=== PATIENT | male | born 1975 | race Caucasian/White ===

== ENCOUNTER 2023-11-06 09:56 | Outpatient (REF) | payer BC, SELFPAY ==
--- NOTE | ~2023-11-06 | XR_ITS ---
EXAMINATION: XR LUMBOSACRAL SPINE WITH OBLIQUES CLINICAL INFORMATION: Lumbar degenerative disc disease. COMPARISON: None. TECHNIQUE: AP and lateral (neutral, flexion and extension) views of the lumbosacral spine are submitted. FINDINGS: Vertebral body heights are normal. There is a mild lumbar rotatory dextroscoliosis. There is mild posterior disc space narrowing at L3-L4. There is marked disc space narrowing at L4-L5. There is mild disc space narrowing at L5-S1. No acute fracture or spondylolisthesis is seen. There is no instability with flexion or extension. There is multi-level lumbar endplate Schmorl's node formation. The posterior elements are intact. There is facet arthropathy at L5-S1. The paravertebral soft tissues are unremarkable. XR/XR lumbar spine 4V min IMPRESSION: 1. There is marked degenerative disc disease at L4-L5, and mild degenerative disc disease is seen at L3-L4 and L5-S1. 2. No acute fracture or spondylolisthesis is seen. There is no instability with flexion or extension 3. There is multi-level endplate Schmorl's node formation. 4. There is facet arthropathy at L5-S1. 5. There is a mild lumbar rotatory dextroscoliosis.
== END 2023-11-06 09:57 | disposition home or self-care (01) ==
LOC: HO.HOSX 09:56
PROVIDERS: Visit Provider Neurological Surgery
DX: M51.36 Other intervertebral disc degeneration, lumbar region (principal); M41.56 Other secondary scoliosis, lumbar region
CPT/HCPCS: 72110

== ENCOUNTER 2024-06-23 06:09 | Inpatient (IN) | payer BC, SELFPAY ==
--- NOTE | 2024-06-09 | ECG_ITS ---
Test Reason : preop Blood Pressure : / mmHG Vent. Rate : 059 BPM Atrial Rate : 059 BPM P-R Int : 148 ms QRS Dur : 104 ms QT Int : 418 ms P-R-T Axes : 041 044 035 degrees QTc Int : 413 ms Sinus bradycardia Otherwise normal ECG No previous ECGs available Referred By: Fouzia Son Electronically Signed By:MARCY ANDERSON
[2024-06-09 12:23] VITALS: BP 125/79; PULSE 67; RESP 20; O2SAT 98; BMI 27.0
[2024-06-09 13:31] LABS: Hematocrit 43.1 % (42.0-52.0); Hemoglobin 14.6 g/dl (14.0-18.0); Mean Corpuscular HGB Conc 33.9 g/dl (31.0-36.0); Mean Corpuscular Hemoglobin 31.9 pg (27.0-33.0); Mean Corpuscular Volume 94.3 fL (80.0-98.0); Mean Platelet Volume 10.4 fL (9.4-12.4); Platelet Count 200 X10*3/uL (160-400); Red Blood Count 4.57 X10*6/uL (4.60-5.80); Red Cell Distribution Width 12.4 % (11.0-16.0)
[2024-06-09 14:39] LABS: Anion Gap 10 (12-20); Blood Urea Nitrogen 16 mg/dL (9-16); Calcium 9.5 mg/dL (8.4-10.2); Carbon Dioxide 27 mmol/L (22-29); Chloride 107 mmol/L (96-108); Creatinine Clr Calc Pharmacy 95.9; Estimated Glomerular Filt Rate > 60; Glucose Random 99 mg/dL (60-115); Potassium 4.1 mmol/L (3.3-5.1); Sodium 140 mmol/L (135-145)
[2024-06-23] VITALS (17 sets, daily range): BP systolic 113–140; BP diastolic 40–92; PULSE 79–97; RESP 16–20; TEMP 36.2–37; O2SAT 98–100; BMI 27.0; BMI 26.9
--- NOTE | ~2024-06-23 | FL_ITS ---
EXAMINATION: FLUOROSCOPY GUIDANCE FOR NEEDLE PLACEMENT CLINICAL INFORMATION: Fluoroscopy in the operating room COMPARISON: None available. TECHNIQUE: Fluoroscopy of the lumbar spine FINDINGS: 2 images demonstrate L3-L5 posterior fusion FLUOROSCOPY TIME: 2 minutes and 33 seconds DOSE AREA PRODUCT: 34.035 Gy-cm2 (angelo-centimeter squared) FL/FL guidance in OR IMPRESSION: Fluoroscopy in the operating room. Please see operative report for additional information. Electronically signed by: Jyotsna Red MD 06/26/2024 04:30 PM EDT
--- NOTE | ~2024-06-23 | CT_ITS ---
EXAMINATION: CT LUMBAR SPINE WITHOUT CONTRAST CLINICAL INFORMATION: Right leg weakness. COMPARISON: Intraoperative fluoroscopic images of earlier same date TECHNIQUE: Thin section axial images with sagittal and coronal reformats. This CT examination was performed using dose optimization techniques as appropriate, variously including the following: *Automated exposure control *Adjustment of mA and/or kV according to patient size (this includes techniques or standardized protocols for targeted exams where dose is matched to indication/reason for exam; i.e. extremities or head) *Use of iterative reconstruction technique DLP; 1305 mGy-cm FINDINGS: There is surgical hardware noted L3-4 and L4-5. The posterior hardware and transpedicular screws are intact and demonstrate normal positioning with extensive streak artifact noted. The intervertebral disc spacers L3-4 and L4-5 are in good position. I do not see evidence of a fracture or destructive process. There is no significant encroachment on the spinal canal. The L5-S1 level is unremarkable. Only mild annular disc protrusion there is observed with mild bilateral foraminal encroachment. At L1-2 and L2-3, there is slight chronic-appearing endplate irregularity with disc space narrowing and mild annular disc protrusions at these levels. At these levels no evidence for spinal stenosis. CT/CT lumbar spine wo IV con IMPRESSION: Surgical hardware intact. No significant encroachment on the spinal canal. Alignment is preserved. Electronically signed by: Hakan Garcia MD 06/23/2024 04:32 PM EDT
[2024-06-23] MEDS: methocarbamoL 750 MG TABLET PO ×3 (06:36→19:13)
[2024-06-23] MEDS: Gabapentin 300 MG CAPSULE PO (06:36)
[2024-06-23] MEDS: Lactated Ringers 1,000 ML 100 ML IVCONT (06:48)
--- NOTE | 2024-06-23 07:00 | HO.ANESPROP2 ---
Documented by User: Fouzia Son NP 06/10/24 13:33 HPI - Anesthesia Eval Consult details Narrative: 48yo M for L3-4,L4-5 Oblique Lumbar Interbody Fusion, 06/23/24 Declines preop versed No recent illness No CP/SOB with walking ~ 2 miles daily Hx opiate abuse: None for years. GERD: ppi controls Afib: 2 x 2011 d/t vagal nerve stim, cardioverted x 2, no recurrence. PMFSH Active Problems Active Problems: All Active Problems Scoliosis of lumbar region due to degenerative disease of spine in adult (Acute) Lumbar degenerative disc disease (Acute) Past Medical History Medical History (Updated 06/09/24 @ 12:16 by Ary Love RN) Sleep disorder Opiate dependence History of cardioversion Afib Arthritis GERD (gastroesophageal reflux disease) Fracture Back pain Lumbar degenerative disc disease Family History Family history of problems with anesthesia: No Surgical History Surgical History History of esophagogastroduodenoscopy (EGD) H/O colonoscopy Hx of nasal septoplasty History of Problems with Anesthesia: No Social History Social History Are you a primary acute care nurse practitioner to a significant other at home: No Do you presently have visiting nurse or other home services: No Patient Tobacco Use Status: Former Tobacco user Tobacco use type: Cigarette Years Smoked: 20 Use of substances other than those prescribed or required for medical reasons: Yes Substance Use Type Other:: smokes marijuana-advised to hold 3-5 days pre-op Substance Use Frequency: Weekly Have you been hit, kicked, punched, or otherwise hurt by someone within the past year? If so, by whom?: No Are you DNR?: No Advance Directives Information Provided: Yes (as above noted) Advance Directives on File: No Recently lost weight without trying: No Eating poorly because of decreased appetite: No Nutrition Risks: No Nutritional Risk Poor oral hygiene: No Meds Allergies Allergy/AdvReac Type Severity Reaction Status Date / Time avocado Allergy Intermediate lip Verified 06/23/24 06:24 swelling prednisone AdvReac Severe panic Verified 06/23/24 06:24 attacks/severe anxiety Home Medications ?Medication ?Instructions ?Recorded ?Confirmed ?Last Taken ?Type omeprazole 40 mg capsule,delayed 40 mg PO QAM 11/06/23 06/23/24 06/23/24 History release magnesium oxide 400 mg PO DAILY 06/09/24 06/23/24 06/22/24 History Exam Height,Weight and Vital Signs: Height 6 ft 3 in Weight 97.976 kg Last Vital Signs Pulse 67 06/09/24 12:23 Resp 20 06/09/24 12:23 BP 125/79 06/09/24 12:23 Pulse Ox 98 06/09/24 12:23 O2 Del Method Room Air 06/09/24 12:23 Pertinent Lab Results Pertinent Lab Results: Lab Results 06/09/24 06/09/24 Range/Units 13:11 13:21 WBC 6.0 (4.8-10.8) X10*3/uL RBC 4.57 L (4.60-5.80) X10*6/uL Hgb 14.6 (14.0-18.0) g/dl Hct 43.1 (42.0-52.0) % MCV 94.3 (80.0-98.0) fL MCH 31.9 (27.0-33.0) pg MCHC 33.9 (31.0-36.0) g/dl RDW 12.4 (11.0-16.0) % Plt Count 200 (160-400) X10*3/uL MPV 10.4 (9.4-12.4) fL Absolute Nucleated RBC 0.000 (0.0-0.012) X10*3/uL Nucleated RBC % (auto) 0.0 (0.0-0.2) /100WBC Sodium 140 (135-145) mmol/L Potassium 4.1 (3.3-5.1) mmol/L Chloride 107 (96-108) mmol/L Carbon Dioxide 27 (22-29) mmol/L Anion Gap 10 L (12-20) BUN 16 (9-16) mg/dL Creatinine 1.15 (0.5-1.4) mg/dL Estim Creat Clear Calc 95.9 Estimated GFR > 60 Random Glucose 99 (60-115) mg/dL Calcium 9.5 (8.4-10.2) mg/dL Blood Type A Negative Antibody Screen NEGATIVE Narrative Narrative: EKG 05/2024 Vent. Rate : 059 BPM Atrial Rate : 059 BPM P-R Int : 148 ms QRS Dur : 104 ms QT Int : 418 ms P-R-T Axes : 041 044 035 degrees QTc Int : 413 ms Sinus bradycardia Otherwise normal ECG No previous ECGs available Airway Mallampati Class: I TM Dist: >3cm Neck ROM: Full Loose/Missing/Broken Teeth: Yes (molars extracted) Heart: RRR Lungs: CTAB Assessment and Plan Assessment Anesthesia Assessment: Anesthesia Plan Discussed and PAT Visit Final Anesthetic Review Family History of Problems with Anesthesia: No History of Problems with Anesthesia: No Documented by User: Britta Boateng, 06/23/24 07:07 [facility] Past Medical History Medical History (Updated 06/09/24 @ 12:16 by Ary Love RN) Sleep disorder Opiate dependence History of cardioversion Afib Arthritis GERD (gastroesophageal reflux disease) Fracture Back pain Lumbar degenerative disc disease Family History Family history of problems with anesthesia: No Surgical History Surgical History History of esophagogastroduodenoscopy (EGD) H/O colonoscopy Hx of nasal septoplasty History of Problems with Anesthesia: No Social History Social History Are you a primary acute care nurse practitioner to a significant other at home: No Do you presently have visiting nurse or other home services: No Patient Tobacco Use Status: Former Tobacco user Tobacco use type: Cigarette Years Smoked: 20 Use of substances other than those prescribed or required for medical reasons: Yes Substance Use Type Other:: smokes marijuana-advised to hold 3-5 days pre-op Substance Use Frequency: Weekly Have you been hit, kicked, punched, or otherwise hurt by someone within the past year? If so, by whom?: No Are you DNR?: No Advance Directives Information Provided: Yes (as above noted) Advance Directives on File: No Recently lost weight without trying: No Eating poorly because of decreased appetite: No Nutrition Risks: No Nutritional Risk Poor oral hygiene: No Meds Allergies Allergy/AdvReac Type Severity Reaction Status Date / Time avocado Allergy Intermediate lip Verified 06/23/24 06:24 swelling prednisone AdvReac Severe panic Verified 06/23/24 06:24 attacks/severe anxiety Home Medications ?Medication ?Instructions ?Recorded ?Confirmed ?Last Taken ?Type omeprazole 40 mg capsule,delayed 40 mg PO QAM 11/06/23 06/23/24 06/23/24 History release magnesium oxide 400 mg PO DAILY 06/09/24 06/23/24 06/22/24 History Exam Exam Date and Time: 06/23/24 0700 Height,Weight and Vital Signs: Height 6 ft 3 in Weight 97.976 kg Last Vital Signs Pulse 67 06/09/24 12:23 Resp 20 06/09/24 12:23 BP 125/79 06/09/24 12:23 Pulse Ox 98 06/09/24 12:23 O2 Del Method Room Air 06/09/24 12:23 Vital Signs Pulse Rate 67 06/09/24 12:23 Respiratory Rate 20 06/09/24 12:23 Blood Pressure 125/79 06/09/24 12:23 Pulse Oximetry 98 06/09/24 12:23 Oxygen Delivery Method Room Air 06/09/24 12:23 Temperature 97.1 F 06/23/24 06:28 Pulse Rate 79 06/23/24 06:28 Respiratory Rate 16 06/23/24 06:28 Blood Pressure 119/83 06/23/24 06:28 Pulse Oximetry 100 06/23/24 06:28 Oxygen Delivery Method Room Air 06/23/24 06:28 Airway Mallampati Class: I TM Dist: >3cm Neck ROM: Full Loose/Missing/Broken Teeth: Yes (molars extracted) Heart: S1S2 Assessment and Plan Assessment Anesthesia Assessment: Anesthesia Plan Discussed and Chart Reviewed Final Anesthetic Review Family History of Problems with Anesthesia: No History of Problems with Anesthesia: No NPO: Yes ASA Class: II Final Preanesthetic Review: No Changes in Pt Med Stat, Meds/Allgs Chart Reviewed, Consent Obtained/Reviewed and Anes Risks/Benef Reviewed Patient Risk: Low Procedure Risk: Intermediate Anesthetic Plan Anesthetic Plan: GA and Agree w/ Assess. and Plan Disposition: Standard PACU
--- NOTE | 2024-06-23 07:22 | MHC.SHP ---
Pre-Procedural Eval Section A - 24 Hr Update-Section A only Date of Service: 06/23/24 The patient is an INPATIENT: No Changes since office visit: No Cold of Flu in the past 2 weeks, No New Medical Problems, No Changes in Medication and No Patient answered all questions The patient has been examined within 24 hours of the surgical procedure. The History & Physical has been completed within 30 days and I have reviewed it.: No Section B - Complete if H&P > 30 days Chief Complaint: s/p L3-5 OLIF Allergies: Allergies Allergy/AdvReac Type Severity Reaction Status Date / Time avocado Allergy Intermediate lip Verified 06/23/24 06:24 swelling prednisone AdvReac Severe panic Verified 06/23/24 06:24 attacks/severe anxiety Review of Systems Sugical H&P ROS: Negative: Constitution, Cardiovascular, Respiratory, Neurological, Psychiatric, Hem-Onc, Allergic/Immunologic, Gastrointestinal, Genitourinary, Musculoskeletal, Integumentary, Endocrine and Eyes/Ears/Nose/Throat Exam Surgical H&P Exam: Normal: HEENT, Normal: Heart, Normal: Lungs, Normal: Extremities, Normal: Abdomen, Normal: Skin and Normal: Neurological (awake, alert,oriented x 3 ) Plan Diagnosis/Plan: Unchanged L3-5 oblique lumbar interbody fusion Time Spent With Patient Time: Total time managing care of this patient today __5__ minutes.
--- NOTE | 2024-06-23 09:38 | PHA.MEDREC ---
Addendum entered by Angelica Sánchez RPh 06/23/24 09:40: eben reviewed Original Note: Pharmacy Consult ? Medication Reconciliation Pharmacy has reviewed the medication reconciliation done by nurse.
--- NOTE | 2024-06-23 10:34 | P.OP_ITS ---
Operative Note Operative Note Date of Service: 06/23/24 Narrative: Preop Diagnosis: 1.) Lumbar degenerative disc disease L3-4, L4-5, dextroscoliosis 2.) Back pain Procedure: 1) L3-4, L4-5 discectomy, arthrodesis and implantation cage through an anterolateral, retroperitoneal approach 2) L3-L5 posterior instrumented fusion 3) allograft 4) Injection of 10 cc of Exparel at the bilateral L4 transverse process for a muscular erector spinae block and additional Exparel in paravertebral tissue for postop management Consent Informed Consent was obtained for this operation. I have explained the nature, purpose and benefits of the operation. I have discussed the risks and benefit of the operation including possible complications or adverse events with patient/family. Alternative(s) were discussed with the patient with their relative benefits and risks as well as the consequences of not accepting the operation were included in obtaining consent. Surgeon: FRANCIS MEJIA MD, PHD Procedure Assisted By: carolyne Fitzgerald Description of Procedure This 48-year-old male presented with severe progressive chronic back pain. Imaging shows advanced lumbar degenerative disc disease L3-4 and L4-5 and dextroscoliosis. The patient was offered an oblique lumbar interbody fusion L3- 4 and L4-5. The procedure complications were explained. The patient was consented. The patient was brought to the operating room and endotracheally intubated. The patient was turned in a lateral position with the left side up. Prep and drape was done followed by timeout. A small incision was made in the left lower abdominal quadrant. The muscle fascia was opened after which the 3 muscle layer was split to enter the retroperitoneal space. Dilators were docked in the anterior one third of the L4-5 disc space followed by a retractor. The retractor was opened. A small arterial bleed occurred which was coagulated with the bipolar. I repositioned the retractor this time I clearly saw psoas muscle which I opened to expose the L4-5 disc space. An annulotomy was done after which an elevator Mathew was used to release the disc material from its endplates and to perforate the contralateral side. A partial discectomy was done. An 8 mm and 10 mm height trial implant was inserted. The discectomy was completed. The endplates were prepared. An 10 mm x 55 mm with 6 degree lordosis 4 web cage filled with allograft was inserted into the disc space under fluoroscopic guidance. This resulted in sizable increase of the disc space and foramina. The retractor was repositioned at the L3-4 level. An annulotomy was done and with an elevator Mathew the disc material was released from its endplate. A 10 mm trial was inserted. The diskectomy was completed with removal of a very large disc fragment. The endplates were prepared. Again a 10 mm x 55 mm with 6 degree lordosis 4 web cage filled with allograft was inserted into the disc space. Final x-rays showed good position of the interbody devices. Hemostasis was done. The retractor was removed.The incision was closed in 2 layers. Steri-Strips were used to approximate incision. An OpSite with Tegaderm was used to cover the incision. This marked first part of the procedure. The patient was turned prone on the [facility] spine table. 2C arms were installed for fluoroscopy. Prep and drape was done followed by a second timeout. 6 paramedian incisions were made lateral from the L3-L5 pedicles. The muscle fascia was opened after which the muscle layer was split bluntly to expose the posterolateral gutter. The following steps were taken. A pediguard tap was used to create a transpedicular trajectory into the vertebral body. A K wire was placed. A specially designed instrument was advanced over the K wire to decorticate the posterolateral gutter in preparation for the posterolateral fusion. A pedicle screw was advanced over the K wire and the K wire was removed. The steps were done for the bilateral L3-L5 pedicles. A total of 6 screws were placed with a diameter of 6.5 x 50 mm. Pedicle screws were connected with 85 mm zabrina bilaterally and locked down with locking caps. The extension towers were removed. The posterolateral gutter was filled with allograft to complete the posterolateral L3-L5 fusion Hemostasis was done and the incision was closed in 2 layers. Steri-Strips were used to approximate the incision. An OpSite were taken and was used to cover the incision. All sponge and needle counts were correct. Patient was extubated and transferred in stable is to recovery room. Anesthesia: General Estimated Blood Loss (ml): 100 mlk Duration of Surgery: 2 hours and 45 minutes Complications: None Postoperative Plan: Admit to inpatient for observation
[2024-06-23] MEDS: HYDROmorphone HCl 0.5 MG/0.5 ML SYRINGE IVPUSH ×3 (11:37→11:49)
[2024-06-23] MEDS: ceFAZolin Sodium/Dextrose,Iso 2 GM/50 ML PIGGYBACK IV ×2 (13:36→19:08)
--- NOTE | 2024-06-23 14:35 | HO.NEUROPN_ITS ---
Neurosurgery Operative Note Date of Service: 06/23/24 Narrative: Postop check L3-4, L4-5 oblique lumbar interbody fusion Patient reports numbness in his right leg in his thigh going down into his calf and foot. Also reports feelings of weakness in his quadriceps. Feeling like he can not lift his leg off the bed. He has back spasms also. No symptoms going down the left leg. Dr. Owens and I evaluated him, on examination he is demonstrating some limitation with his right quadriceps, some limitation with hip flexion as well in the iliopsoas, unclear if this is due to pain or neurological. Distal lower extremity on the right leg tibialis and gastrocnemius full strength. Left lower extremity strength is full with the exception of some mild hip flexion weakness related to pain. He has decreased sensation along what seems to be the L 3/4 dermatome and some into the L5 as w ell on the right leg. We sent the patient for a stat CT scan, CT confirms all the hardware is in good position, pedicle screws do not show any misplacement near the nerves. Impression: Postop check L3-5 oblique lumbar interbody fusion, patient woke with numbness of his right leg going in multiple distributions, feelings of weakness of his right quadriceps. We did a CT scan and it seems that all the hardware is in good positioning so this could just be due to irritation of the nerves after surgery, possibly some of the Exparel nerve block in the area causing some loss of sensation. I examined him after our initial examination he seemed to be a little bit stronger in terms of his quadriceps strength. I would currently rated as 3/5 while supporting the knee. I reviewed all this with Dr. Owens, we will just continue to monitor the situation expect it to resolve with time. He can be out of bed as tolerated, regular diet. He can work with PT home either tomorrow or the day after.
[2024-06-23] MEDS: Acetaminophen 1,000 MG/100 ML PIGGYBACK 400 MG IV ×2 (15:05→19:08)
[2024-06-23] MEDS: oxyCODONE HCl Immed Release 5 MG TABLET PO (15:10)
[2024-06-23] MEDS: oxyCODONE HCl Immed Release 5 MG TABLET 10 MG PO (19:07)
[2024-06-23] MEDS: Ketorolac Tromethamine 15 MG/ML VIAL IVPUSH (20:27)
[2024-06-23] MEDS: HYDROmorphone HCl 1 MG/ML SYRINGE IVPUSH (20:28)
[2024-06-24] MEDS: ceFAZolin Sodium/Dextrose,Iso 2 GM/50 ML PIGGYBACK IV (01:00)
[2024-06-24] MEDS: methocarbamoL 750 MG TABLET PO (02:25)
[2024-06-24] MEDS: oxyCODONE HCl Immed Release 5 MG TABLET PO ×3 (02:29→14:39)
[2024-06-24] MEDS: Acetaminophen 1,000 MG/100 ML PIGGYBACK 400 MG IV (02:30)
[2024-06-24 02:34] VITALS: BP 138/81; PULSE 83; RESP 20; TEMP 36.7; O2SAT 100
[2024-06-24] MEDS: Ketorolac Tromethamine 15 MG/ML VIAL IVPUSH ×3 (03:39→14:40)
[2024-06-24] MEDS: Cyclobenzaprine HCl 10 MG TABLET PO (03:49)
--- NOTE | 2024-06-24 03:56 | PC.NURSE ---
Patient complains of muscle spasms, prn Robaxin given with no effect and patient currently refusing any other pain meds at this time stating he needs a different muscle relaxer. notified and noam ordered and given with pending effect
[2024-06-24] MEDS: Omeprazole 40 MG CAPSULE.DR PO (06:15)
--- NOTE | 2024-06-24 07:29 | HO.NEUROPN_ITS ---
Neurosurgery Operative Note Date of Service: 06/24/24 Narrative: POD: 1 Procedure: L3-5 SHAUN Huston was seen sitting in bed this morning on [address] [place] [address]. He reports that overnight he had quite a bit of pain in his low back. He did not want to take the narcotic pain medication that was prescribed. Instead he requested muscle relaxers. He did report good relief of his pain when he was able to get the requested muscle relaxers. He has been up out of bed to the bathroom. He is tolerating his current diet. Thankfully he feels his lower extremity strength has significantly improved since postop. Afebrile, vital signs stable. Patient is conversational, in some obvious pain but NAD. Full strength 5/5 LEs. Back dressings have some staining without signs of hematoma. No active sanguineous drainage. Area is dry. Plan: Will be remain admitted to [address] [place] [address] for recovery, pain management, and further evaluation. I will be adding on a course of baclofen and gabapentin to his medication regimen, in an effort to better control his pain without narcotic pain medication, as he has expressed his unwillingness to take narcotic pain medications unless absolutely necessary. Unfortunately due to this, he is not progressing as quickly as we may have hoped with his postoperative recovery. We will stop by and see him later this afternoon to see if this has helped. Juancho Owens MD,PhD [facility]
[2024-06-24 07:35] VITALS: BP 119/62; PULSE 84; RESP 20; TEMP 36.1; O2SAT 97
[2024-06-24 07:36] VITALS: BP 108/65; PULSE 72; RESP 16; TEMP 36.8; O2SAT 97
[2024-06-24] MEDS: Gabapentin 300 MG CAPSULE PO ×2 (08:22→14:38)
[2024-06-24] MEDS: Acetaminophen 325 MG TABLET 975 MG PO ×2 (08:22→14:39)
[2024-06-24] MEDS: Baclofen 10 MG TABLET PO ×2 (08:22→12:57)
[2024-06-24] MEDS: Magnesium Oxide 400 MG TABLET PO (08:22)
[2024-06-24] MEDS: hydrOXYzine HCL 25 MG TABLET PO ×2 (08:22→14:39)
[2024-06-24] MEDS: Docusate Sodium 100 MG CAPSULE PO (08:22)
--- NOTE | 2024-06-24 09:43 | MHC.CM.PN ---
Addendum entered by Skylar Han RN 06/24/24 13:50: Patient dc'd home self care via private transport Original Note: Patient lives in a home w/ his and adult son. Functionally independent. Denies use of DME or services. PCP JOURDAN Mcduffie No HCP. CM provided education and offered assistance. Patient declined. DP: PT recommending outpatient services. Home self care. to transport. Potential dc later today. CM will continue to follow.
[2024-06-24] MEDS: oxyCODONE HCl Immed Release 5 MG TABLET 10 MG PO (10:34)
--- NOTE | 2024-06-24 13:31 | PM.DS ---
DS: Providers Provider Date of Service: 06/24/24 Date of admission: 06/23/24 06:09 Primary care physician: Unknown Physician DS: Summary Time Attestation Discharge Coordination Time (in mins): 15 Quality: Safe Use of Opioids Does Pt have an Active Cancer Diagnosis on the Problem List?: No Quality: Stroke Does the patient have a stroke diagnosis?: No Physical Exam Vital Signs: Vital Signs: Last Vital Signs Temp 98.2 F 06/24/24 07:36 Pulse 72 06/24/24 07:36 Resp 16 06/24/24 07:36 BP 108/65 06/24/24 07:36 Pulse Ox 97 06/24/24 07:36 O2 Del Method Room Air 06/24/24 07:36 O2 Flow Rate 5 06/23/24 11:35 BMI result Body Mass Index 26.9 Discharge Plan Discharge Anticipated Discharge Date/Time: 06/24/24 13:39 Patient Disposition: Home, Self-Care Discharge Diagnosis: s/p L3-5 OLIF Referrals: Physician,Unknown J [Primary Care Provider] - 1 Week Discharge Medications: New baclofen 10 mg tablet 10 mg PO QID PRN (Reason: muscle spasms) Qty: 30 0RF gabapentin 300 mg capsule 300 mg PO TID PRN (Reason: nerve pain) Qty: 30 0RF hydroxyzine HCl 25 mg tablet 25 mg PO TID Qty: 30 0RF Continued magnesium oxide 400 mg magnesium Tablet 400 mg PO DAILY omeprazole 40 mg capsule,delayed release(DR/EC) 40 mg PO DAILY@0630 Discharge Orders: Discharge Order (Routine); Ordered 06/24/24 Ordered By: Juancho Santoyo Diet: Advance to usual diet Stand Alone Forms: Patient Portal Discharge page Print Language: Portuguese Activity Restrictions/Additional Instructions: After your spinal surgery we ask you to observe the following restrictions/guidelines: Activity: It is normal to feel some discomfort as you increase your activity, but that will improve with time. We ask you avoid heavy lifting or acitivities that cause pain. As a general rule, 8lbs is a safe limit for lifting right after surgery. Walk as much as you feel comfortable but not to exhaustion. You will feel extra tired the first few days after surgery. Stay well hydrated. It is OK to walk up and down stairs You may return to driving when you are off narcotics (such as vicodin, oxycodone, dilaudid, etc), and you are back to normal functional capacity. If you have any concerns please check with office before driving. Return to work is specific to each patient and each surgery, so please speak with your doctor/PA at first follow up. Please bring paperwork such as FMLA at that time if you need it filled out. Medications: We will be prescribing Baclofen, Gabapentin, and Hydroxyzine for you to take for post-operative pain as you do not report relief from narcotic pain medications. We also recommend you take 1,000mg Tylenol every 8 hours for the first few weeks after surgery, if you do not have any liver issues and can tolerate this medication. Do not exceed 4,000mg daily. We will give you a short supply of narcotics after surgery (usually one weeks worth). If you need more please call the office but do not use more than prescribed. You will need to give our office 48 hours notice if you need narcotics refilled and we do not fill narcotics on weekends or evenings. If you are on a narcotic, it is a good idea to take a stool softener such as colace or senna to avoid constipation If you take blood thinner such as aspirin, Plavix, Coumadin, Effient, Eliquis etc for conditions such as Afib, DVT, Pulmonary embolus, coronary disease, stents etc please speak with your surgeon about specific details as to when you can resume these medications. You can resume NSAIDs on post op day 1 (eg: Motrin, Naproxen, etc). Follow up: Please call the office, , after surgery to arrange a 3 week follow up for wound check. Wound Care: You may remove your dressing on the first day after surgery. ?You may ?leave open to air. Please do not remove the steri strips underneath. they will fall off on their own in one week. IT IS NORMAL FOR THE WOUND TO OOZE OR BE BLOODY FOR A FEW DAYS AFTER SURGERY. ?IF THIS HAPPENS JUST PLACE NEW DRESSING OVER IT TO AVOID STAINING CLOTHES. You may shower on post op day # 1 We ask that you do not let the water soak the wound. If it does get wet, just towel dry lightly. Please do not scrub your incision or place any type of chemical/ointment on the wound. No tub baths, pools or jacuzzis for one month. If you have any leaking or redness from your wound, or fevers, please call the office. Care Plan Goals: Returned to normal activity as tolerated Health Concerns: None Plan of Treatment: Follow-up in clinic in 2-3 weeks. Assessment: POD: 1 Procedure: L3-5 SHAUN uHston was seen sitting in bed this morning on . He reports that overnight he had quite a bit of pain in his low back. He did not want to take the narcotic pain medication that was prescribed. Instead he requested muscle relaxers. He did report good relief of his pain when he was able to get the requested muscle relaxers. He has been up out of bed to the bathroom. He is tolerating his current diet. Thankfully he feels his lower extremity strength has significantly improved since postop. Afebrile, vital signs stable. Patient is conversational, in some obvious pain but NAD. Full strength 5/5 LEs. Back dressings have some staining without signs of hematoma. No active sanguineous drainage. Area is dry. Plan: After seeing him alongside Dr. mednez this morning, I ordered him Gabapentin, Baclofen, and Hydroxyzine for postoperative pain control, as he reports poor relief from narcotic pain medications and reported good relief from muscle relaxers. He responded well to this regimen and requested DC home. I sent these medications in to his pharmacy. Juancho Mendez MD,PhD [facility]
== END 2024-06-24 15:20 | disposition home or self-care (01) | DRG 304 ==
LOC: HO.SSSA 07:07 → HO.S3 11:53
PROVIDERS: Neurological Surgery; Nurse Practitioner; Admitting Provider Physician Assistant; Visit Provider Physician Assistant
PROC: 0SG10A0 Fusion of 2 or more Lumbar Vertebral Joints with Interbody Fusion Device, Anterior Approach, Anterior Column, Open Approach (ICD-10-PCS; principal; 2024-06-23 07:30)
DX: M51.36 Other intervertebral disc degeneration, lumbar region (principal); Z79.899 Other long term (current) drug therapy; Z87.891 Personal history of nicotine dependence
CPT/HCPCS: 36415; 72131; 80048; 85027; 86850; 86900; 86901; 93005; 97161; C1713; C1889; C9290; J0131; J0665; J0690; J1100; J1170; J1885; J2405; J2704; J3010; L8699

== ENCOUNTER 2024-07-06 13:21 | Outpatient (REF) | payer BC, SELFPAY | END 2024-07-06 13:22 | disposition home or self-care (01) | LOC: HO.HOSX 13:21 | PROVIDERS: Visit Provider Physician Assistant | DX: Z13.89 Encounter for screening for other disorder (principal) ==

== ENCOUNTER 2024-07-07 12:37 | Outpatient (AMB) | payer BC, SELFPAY ==
--- NOTE | 2024-07-07 13:00 | A.SPINEOV_ITS ---
Intake Visit Reasons: Post pain & Lumbar Xrays Intake Note: Mr. Fiore is here to F/u lumbar xrays. 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 He has had quite a bit of bilateral low back pain, accompanied by sharp pains in the bilateral hips, in pains down the anterior thighs terminating near the knee. He does report some improvement since the surgery; he says his knees no longer buckle, the shooting posterior radiculopathy he had on the right side has resolved, and he feels more stable when sitting upright. I had him come in today and obtain a set of lumbar x-rays to ensure his instrumentation is in place. We reviewed these x-rays together during this visit. They show stable placement of his surgical construct with no changes when compared to fluoroscopy. On examination the patient has posterior incision sites that are closed, well healing, with no signs of drainage. Unfortunately there is quite a bit of inflammation under the skin, without any warmness to touch, erythema, or fluctuance. I believe Robel is suffering from postoperative inflammation secondary to his spinal fusion surgery. I do not see any issues with his hardware at this time, and his clinical picture is most consistent with inflammation related pain. I will follow up with him routinely at his next postoperative visit. Juancho Owens MD,PhD [facility] Orders: Orders XR lumbar spine 4V min Today M54.50 - Low back pain, unspecified Coding Level of Care Code Global (71418) Diagnoses S/P spinal fusion Z98.1
== END 2024-07-07 13:31 | disposition home or self-care (01) ==
PROVIDERS: Visit Provider Physician Assistant
DX: Z98.1 Arthrodesis status (principal)
CPT/HCPCS: 99024

== ENCOUNTER 2024-07-07 12:37 | Outpatient (REF) | payer BC, SELFPAY | END 2024-07-07 12:38 | disposition home or self-care (01) | LOC: HO.HOSX 12:37 | PROVIDERS: Visit Provider Physician Assistant | DX: M54.50 Low back pain, unspecified (principal) | CPT/HCPCS: 72110 ==

== ENCOUNTER → 2024-07-07 12:37 | Outpatient (BNVA) | payer BC, SELFPAY | PROVIDERS: Visit Provider Physician Assistant | DX: M54.50 Low back pain, unspecified (principal) ==

== ENCOUNTER 2024-08-31 09:53 | Outpatient (AMB) | payer BC, SELFPAY ==
--- NOTE | 2024-08-31 10:06 | HO.SPINEOV ---
Intake Visit Reasons: 2nd post op Intake Note: Mr. Fiore is here today for his 2nd post op visit. 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 To recap he was seen early for his 1st post-operative visit after calling our service over the weekend to discuss his continued pain since surgery. He had a lot of persistent bilateral low back pain, accompanied by sharp pains in the bilateral hips & pains down the anterior thighs terminating near the knee. He reports that he has had some muscle pain above and below his surgical site since the surgery. He expressed his concerns regarding compression of nerves either above or below his surgery. When further discussing his pain he states that he has been in pain since he was 14 years old, and reports that it simply travels to different places. He asked many questions regarding the postoperative healing course all of which I answered to the best of my ability. He requested that I review his MRI during this visit, which I did. There does not appear to be any nerve compression at L2-3 or L5-S1, at least not pre-operatively. His X-ray imaging was re-assuring during his last visit. He has no radicular component to his pain. No new neurological deficits. The patient ambulates well and rises from a seated position without difficulty. His posterior incision sites appear closed and well healing. I would like to send Robel for a course of physical therapy to see if they can work out some of the musculoskeletal pain that is troubling Robel since his surgery. I encouraged him to follow up with our office after physical therapy if his pain does not resolve with exercise and stretching. He may need subsequent imaging if his pain progresses farther than just the paraspinal region. Juancho Owens MD,PhD [facility] Orders: Orders CT lumbar spine wo IV con 04/22/25 Z98.1 - Arthrodesis status PT Evaluation and Treatment Today Z98.1 - Arthrodesis status Coding Level of Care Code Global (60920) Diagnoses S/P spinal fusion Z98.1
== END 2024-08-31 10:43 | disposition home or self-care (01) ==
PROVIDERS: Visit Provider Physician Assistant
DX: Z98.1 Arthrodesis status (principal)
CPT/HCPCS: 99024

== ENCOUNTER 2024-12-03 09:06 | Outpatient (AMB) | payer BC, SELFPAY ==
--- NOTE | 2024-12-03 09:21 | A.SPINEOV_ITS ---
Intake Visit Reasons: follow up Intake Note: Mr. Fiore is here today for a F/u. 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 Watson barfield in May. He has had a complicated postoperative course overall. He had fairly severe pain in the 1st month after surgery, had moderate-severe pain in 2nd month after surgery, subsequently had relief of pain for almost all of July, then his pain returned in August and has persisted essentially since then. He has been sent for a course of physical therapy in an effort to help work out the residual pains from assumed deconditioning from the surgery. Unfortunately this did not seem to help him very much. Today in office he reports fairly significant low back pain and shooting pain down his right lower extremity. When describing the pain he runs his hand from his posterior buttocks down the lateral thigh and over the superior portion of the anterior tibialis. He denies any numbness/tingling associated with the pain. Medications: No reported changes since last visit. Allergies: No reported changes since last visit. Exam: The patient has 5/5 strength in his bilateral lower extremities. He does elicit pain to full strength testing on the right side. He ambulates well and rises from a seated position without difficulty. He has no significant s ensational deficits on examination, other than his baseline numbness at the bottom of his bilateral feet. His L4 and S1 reflexes are intact bilaterally, although he is slightly hypoactive in L4 bilaterally. (-) bilateral straight leg raise. Plan: Robel is now about 6 months out from surgery, and is reporting continued low back pain and shooting pains down his right lower extremity. He has attempted physical therapy and multimodal pain medication regimens without success (including NSAIDs, antipyretics, muscle relaxers and narcotic pain control). I would like to send him for a repeat lumbar MRI to ensure that he has no continued or new nerve compression since his surgery. I will call him with the results of the MRI after it is read by Radiology. Juancho Owens MD,PhD [facility] Coding Level of Care Code Global (71557) Diagnoses S/P spinal fusion Z98.1
--- OUTSIDE RECORDS SUMMARY | 2024-12-03 10:04 | XMS_ITS | Referral Summary ---
Author Organization [facility] Address [address] [place] [address] Care Team Providers Care Technical Specialist Cytogenetics Name Role Phone [place], Jess SANDRA Primary Care Provider [phone] Allergies No known active allergies Medications omeprazole (PriLOSEC) 40 mg capsule 0 7 Active celecoxib (CeleBREX) 100 mg capsuleIndicati ons:Chronic low back pain, unspecified back pain laterality, with sciatica presence unspecified Take 1 capsule (100 mg total) by mouth daily. Or 2 a day if necessary, per MD instructions 20 capsule 1 7 Active Active Problems Problem Noted Date Diagnosed Date Arthralgia of multiple joints 09/28/2017 Assessment & Plan (09/28/2017 12:18 PM EST): Some diffuse areas of discomfort in the ankles and knees and in the spine and in the elbow I do not think have a unifying explanation. The elbow and spine symptoms clearly can be a localized problems on their own merits, and with his lower extremity symptoms in the ankles and knees and pretibial area, I do not see anything on exam that would suggest changes as one might see with tendon and ligament attachment inflammation as one sees with some forms of psoriatic arthritis or HLA-B27 related reactive arthritis. There is some merit to looking for inflammatory markers might redirect medication management suggestions. If these remain in the realm of mechanical problems the elbows and spine in the extremities, then local pain management approaches, stretching and physical therapy referral and topical approaches might be appropriate. Anti-inflammatory medication for now before making additional medication suggestions. Enthesitis 09/28/2017 Assessment & Plan (09/28/2017 12:10 PM EST): As discussed above, will evaluate for inflammatory disease in the thoracic and lumbar spine and ankle area with regular imaging. Suggestions may be offered based on findings. Medial epicondylitis of right elbow 02/16/2015 Assessment & Plan (09/28/2017 12:05 PM EST): Minor symptoms presently, best managed with exercise program, and if necessary a tennis elbow band. Nothing presently that would give me concern for need to refer to physical therapy or for surgical referral. 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 Not on file Not on file Last Filed Vital Signs Vital Sign Reading Time Taken Comments Blood Pressure 119/80 02/15/2023 9:18 AM EDT Pulse 79 02/15/2023 9:18 AM EDT Temperature 37.1 ??C (98.7 ??F) 07/29/2017 10:47 AM E DT Respiratory Rate 16 02/15/2023 9:18 AM EDT Oxygen Saturation 99% 02/15/2023 9:18 AM EDT Inhaled Oxygen Concentration - - Weight 98 kg (216 lb 0.8 oz) 02/15/2023 9:18 AM EDT Height 190.5 cm (6' 3 ) 02/15/2023 9:18 AM EDT Body Mass Index 27 02/15/2023 9:18 AM EDT Plan of Treatment Not on file Insurance MEDICARE [facility] Care Teams Technical Specialist Cytogenetics Relationship Specialty Start Date End Date Jess Abreu NP [address] [place] [address] PCP - General Nurse Practitioner 10/26/22
--- OUTSIDE RECORDS SUMMARY | 2024-12-03 10:04 | XMS_ITS | Clinical Summary ---
Author Organization [facility] Address [address] [place] [address] Care Team Providers Care Manager Clinical Services Name Role Phone [place], Jess SANDRA Primary Care Provider Allergies No known active allergies Medications omeprazole [...] to physical therapy or for surgical referral. Family History Medical History Relation Name Comments Other Father Family history of No pertinent family history , lumbar spinal stenosis, tendon problems Other Mother Family history of No pertinent family history , hand OA No Known Problems Son Relation Name Status Comments Father Alive Mother Alive Son Alive Social History Tobacco Use Types Packs/Day Years [...] 8:21 AM EST Sexual Orientation Straight 10/23/2022 8: 21 AM EST Occupation Industry Job Start Date [...] 02/15/2023 9:18 AM EDT Plan of Treatment Health Maintenance Due Date Last Done Comments Cleo 1977 Colon Cancer Screening 1977 Colonoscopy 1977 FOBT / Fit Test 1977 HIV Screening 1977 Hepatitis C Screening 1977 Sigmoidoscopy 1977 Hepatitis B Vaccines (1 of 3 - 19+ 3-dose series) 10/02 Pneumococcal Vaccine: Pediat elizabeth (0-5 Years) and At-Risk Patients (6-50 Years) (1 of 2 - PCV) 1996 DTaP,Tdap,and Td Vaccines (1 - Tdap) 1999 COVID-19 Vaccine (1 - 2023-25 season) 2024 Influenza Vaccine (#1) 2024 Alcohol/Substance Use Screening 09/30/2024 Depression Evaluation 09/30/2024 Social Drivers of Health Annual Screening 09/30/2024 RSV Vaccine (60+ years old a nd patients) (1 - 1-dose 75+ series) 2052 Insurance MEDICARE [facility] Care Teams Manager Clinical Services Relationship Specialty Start Date End Date Jess Abreu NP [address] [place] [address] PCP - General Nurse Practitioner 10/26/22
--- OUTSIDE RECORDS SUMMARY | 2024-12-03 10:04 | XMS_ITS | Patient Health Record ---
Author Organization [facility] Address [address] [place], [place] [id number] Care Team Providers Care Manager Inventory Control Name Role Phone Cate FLORES, Nora Storey Primary Care Provider Unajoelle ailable Martínez Raman Unavailable [phone] Reason For Referral No Information Medications Medication SIG (Take, Route, Frequency, Duration) Notes Start Date End Date Status Omeprazole 40 MG 1 capsule Orally Onc e a day Active APAP Machine- 5-15 cm H2O using FFM and heated humidification Nightly q hs Active Immunizations Vaccine Route Administration Date Status Comme nts Zz Flucelvax Quadrivelant 2017 Unknown 02/21/2018 Refus ed Problems Problem Type SNOMED Code ICD Code Onset Dates Problem Status W/U Status Risk Notes Problem Paroxysmal atrial fibrillation (939402915) Paroxysmal atrial fibrillation (I48.0) Active confirmed Problem Tobacco abuse (70799267) Tobacco abuse (Z72.0) Active confirmed Problem Obstructive sleep apnea (55091376) Obstructive sleep apnea (G47.33) Active confirmed Problem Hypersomnia (89173594) Hypersomnia (G47.10) Active confirmed Problem Gastroesophageal reflux disease (116228791) GERD (gastroesophage al reflux disease) (K21.9) Active confirmed Plan Of Treatment Pending Test Test Name Order Date Sleep Home Sleep Testing 02/21/2018 XR CHEST 2 VW 02/19/2018 Future Test Test Name Order Date SLEEP STUDY-SPLIT 05/30/2018 Insurance Providers Payer Name Payer Address Payer Phone Subscriber Number Group Number Insured Name Patient Relationship to Insured Coverage Start Date Coverage End Date [facility] [address] [place] [address] [phone] [id number] Robel Fiore Self - patient is the insured Medical (General) History Medical History History ICD Code Paroxysmal atrial fibrillation I48.0 Anxiety F41.9 ADHD (attention deficit hyperactivity di sorder) F90.9 GERD (gastroesophageal reflux disease) K 21.9 Surgical History Surgery Date(Month/Year) Nasal septoplasty
== END 2024-12-03 09:37 | disposition home or self-care (01) ==
PROVIDERS: Visit Provider Physician Assistant
DX: Z98.1 Arthrodesis status (principal)
CPT/HCPCS: 99213

== ENCOUNTER → 2024-12-03 09:06 | Outpatient (BNVA) | payer BC, SELFPAY | PROVIDERS: Visit Provider Physician Assistant ==

== ENCOUNTER 2024-12-17 10:19 | Outpatient (REF) | payer BC, SELFPAY ==
--- NOTE | ~2024-12-17 | MR_ITS ---
EXAMINATION: MR LUMBAR SPINE WITHOUT CONTRAST CLINICAL INFORMATION: Arthrodesis status. Persistent low back pain radiating to the right lower extremity. COMPARISON: Correlated to CT dated June 23, 2024 demonstrated surgical hardware at L3-4 and L4-5. TECHNIQUE: MRI of the lumbar spine was obtained using routine sequences without contrast. FINDINGS: Last rib-bearing vertebra labeled T12. Paramagnetic field distortion secondary to the metallic hardware placed through the chest pedicle screws L3 L5 and the intervertebral body disc spacers L3-4 and L4-5. There is a subtle bone marrow STIR signal in the inferior endplate of T12, L3 and L5. L2 level marginal osteophyte formation and Schmorl nodes as well as disc desiccation from T12-L1 to L2-3. There is a 2 mm of retrolisthesis L3-4. There is a 1 mm retrolisthesis at T12 L1 The conus medullaris ends at inferior endplate of L1 with normal signal. The neural elements of the cauda equina and filum terminalis of demonstrated normal morphology and positioning without grouping or clumping. T12-L1: No disc herniation. No neuroforamina stenosis. L1-2: No disc herniation. No central spinal canal stenosis or neuroforamina stenosis. L2-3: Broad-based disc bulging. Facet joint hypertrophy. No compression upon neural elements. L3-4: Postsurgical changes. No gross central spinal canal or neuroforamina stenosis. L4-5: Postsurgical changes. No central spinal canal or neuroforamina stenosis. L5-S1: Broad-based disc bulging. Facet joint hypertrophy. Prominent epidural fat in a circumferential fashion reducing the AP diameter of the thecal sac. Bilateral neuroforamina narrowing. Degenerative changes in the sacroiliac joints. No prevertebral compartment hematoma, mass or fluid collection. MR/MR lumbar spine wo con IMPRESSION: Mild prominent epidural fat reducing the AP diameter of the thecal sac and spondylosis at L5-S1 encroaching the neural elements. Spondylosis, T12-L1 and L2-3 levels without compression upon neural elements. Electronically signed by: Ever Guzman MD 12/17/2024 01:04 PM EDT
== END 2024-12-17 10:20 | disposition home or self-care (01) ==
LOC: HO.MRI 10:19
PROVIDERS: PCP Nurse Practitioner Family; Visit Provider Physician Assistant
DX: M54.50 Low back pain, unspecified (principal); Z98.1 Arthrodesis status
CPT/HCPCS: 72148

== ENCOUNTER → 2024-12-17 10:22 | Outpatient (BNV) | payer BC, SELFPAY | PROVIDERS: PCP Nurse Practitioner Family; Visit Provider Radiology Diagnostic Radiology | DX: M47.815 Spondylosis without myelopathy or radiculopathy, thoracolumbar region (principal) | CPT/HCPCS: 72148 ==

== ENCOUNTER 2025-01-28 07:02 | Outpatient (REF) | payer BC, SELFPAY ==
--- NOTE | ~2025-01-28 | FL_ITS ---
EXAMINATION: FL GUIDANCE ONLY HISTORY: Z98.1 - Arthrodesis status COMPARISON: None available. TECHNIQUE: Fluoroscopy time: 0.3 minutes. Cumulative Dose: 10.3 mGy. DAP: 0.108 mGym2 Images: 3. FINDINGS: Images demonstrate a needle and contrast material in the region of the right L5-S1 facet joint. FL/FL guidance in treatment room IMPRESSION: Fluoroscopy during procedure. Please see procedure report for additional information. Electronically signed by: Sharan Donato MD 01/28/2025 02:50 PM EDT
--- OUTSIDE RECORDS SUMMARY | 2025-01-28 07:04 | XMS_ITS | Encounter Summary ---
Author Organization [facility] Address [address] [place] [address] Care Team Providers Care Service Operations Manager Name Role Phone RandellRiccardo workman Darlene Primary Care Provider [phone] None, Pcp Primary Care Provider Unavailabl e System, Provider Not In Primary Care Provider Un available Encounter Details Date Type Department Care Team (Late st Contact Info) Description 10/21/2014 Clinical Conversion Encounter Department of Neurosurgery [address] [place] [address] Stanley Chan, NEWS GATHERING TECHNICIAN [address] [place] [address] Social History Tobacco Use Types Packs/Day Years Used Date Smoking Tobacco: Some Days Sex and Gender Information Value Date Recorded Sex Assigned at Male 09/17/2018 11:34 AM EST Legal Sex Male 3:14 AM EST Gender Identity Male 09/17/2018 11:34 AM EST Sexual Orientation Not on file documented as of this encounter Progress Notes * Stanley Chan NP - 11/26/2014 5:49 PM EST [id number],MICHAEL [place], [place]. NEUROSURGERY 10/21/2014 Name: ROBEL FIORE LC#: [id number] : 1975 Visit ID: [id number] Second Visit ID: [id number] HISTORY OF PRESENT ILLNESS: Mr. Fiore returns to neurosurgery clinic today. He is a 38-year-old gentleman with a past medical history notable for chronic pain, who was seen by Dr. Kennedy last in this clinic in November 2010. Prior to that, I had seen the patient in 2008 and 2009 with complaints of low back pain. During those visits, the patient was diagnosed with mechanical back pain related to degenerative disk disease. No surgical intervention was advised ultimately. Prior to my seeing the patient, he had also seen Dr. Lopez in 2006. Surgery was not advised by both Dr. Kennedy and Dr. Lopez in addition to Dr. Ernie Charlton. However, given the persistence of the low back pain, he has undergone a new lumbar MRI and returns to neurosurgery clinic for further evaluation today. Additionally, the patient has developed neck discomfort and daily spasm, which does interrupt the quality of his life. Therefore, he has also undergone a cervical MRI. REVIEW OF SYSTEMS: The patient reports a constellation of symptoms today. The chief complaint is of neck pain and spasm in the base of the neck. This hurts more in the morning. He feels a spasm. He has a secondary complaint of chronic low back pain. The pain does not radiate into the lower extremities. He has a third complaint of bilateral elbow discomfort with movement, right greater than left. He has a fourth complaint of left shoulder discomfort. Many of these pains are chronic. He is on chronic narcotics. He has been taking oxycodone 15 mg 6 times daily for years. 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 He has had a difficult time with transitioning off of this medication; however, he has been successful in doing so. He does continue to smoke. SOCIAL HISTORY: He smokes approximately 1/4 pack of cigarettes per x many years. He is a gonn-mi-ebks dad to an autistic child. He is . PHYSICAL EXAMINATION: Reveals a well-nourished and developed, well-appearing, young male in no apparent distress. Affect and mood appropriate. Alert and oriented x3. On examination, the neck is supple. The deltoids, biceps, and triceps are full strength. Finger extensors and intrinsics are full strength. Lower extremities are full strength. Gait is symmetric and steady. Light touch sensation is preserved. The patient moves about freely in examination room without any objective indication of pain. DATA: I reviewed the cervical and lumbar MRI studies. The lumbar MRI demonstrates evidence of degenerative disk disease at L2-L3, L3-L4, L4-L5, and L5-S1. There are evidence of Modic changes at the endplates of all these levels consistent with prior study. There is mild foraminal stenosis at L5-S1 on the right. There is no obvious neural tissue compression. Cervical MRI is reviewed. This demonstrates degenerative disk disease, most prominent at C5-C6 and C6-C7. There is mild facet arthropathy at these levels in addition to C3-C4 to a mild degree. There is a normal cervical spinal cord. There is no obvious neural tissue compression. DISCUSSION: I had a long and detailed discussion with the patient regarding all of his symptoms. I discussed with the patient in congruence with the prior surgical evaluations, I do not believe that there is any clear role for Neurosurgery at this point. On further discussion, the patient reports a high degree of stress. We discussed how stress may contribute to pain and muscle spasm and ache. I have offered the patient the ollowing interventions:\E\ 1. Orthopedic Surgery consultation for left shoulder pain and epicondylitis bilateral. 2. Behavioral Medicine consultation for coping and stress management in addition to chronic opioid use and difficulty with discontinuing benzodiazepines and associated withdrawal symptoms. 3. Trigger point injection therapy for neck pain. At this point, the patient would like to defer all of these interventions. I have provided my card and contact information with instruction to call if at any point he would like to proceed with any of the above aforementioned interventions, I would be happy to arrange them. Otherwise, he discussed he may seek out orthopedic consultation closer to his home in [place], [place]. This is certainly reasonable. The patient does seem entirely satisfied with the discussion and plan of care. Stanley Chan RN NEWS GATHERING TECHNICIAN [phone] DM:[email or web address] J: [id number] / [id number] CC: Riccardo Mejias MD, <Primary Care Physician> Gopal Lopez MD, <Referring> THIS DOCUMENT WAS ELECTRONICALLY AUTHENTICATED BY Stanley Chan RN, NEWS GATHERING TECHNICIAN ON 11/09/2014 11:07:06 documented in this encounter Plan of Treatment Not on file documented as of this encounter Procedures Procedure Name Priority Date/Time Associated Diagnosis Comments MRI LUMBAR SPINE WO CONTRAST Routine 10/21/2014 1:31 PM EST MRI CERVICAL SPINE WO CONTRAST Routine 10/21/2014 1:31 PM EST documented in this encounter Results * MRI Cervical Spine WO Contrast (10/21/2014 1:31 PM EST) Anatomical Region Laterality Modality Cervical Spine Magnetic Resonan ce 10/21/2014 1:31 PM EST Narrative 10/21/2014 1:45 PM EST EXAM DESCRIPTION: Cervical MR without contrast 10/21/2014 1:31 PM TECHNIQUE: Multiplanar, multisequence MR imaging of the cervical spine was acquired. COMPARISON: None INDICATION: Progressive neck pain with bilateral trapezius pain. FINDINGS: Alignment :Shallow dextroconvex rotary asymmetry. Bones: Moderate left paracentral C6-C7 type 1 marrow reaction associated with Schmorl's endplate intrusion. . Spinal Cord: Normal. Spinal stenosis: None Limited paraspinous soft tissue evaluation is unremarkable. There is C5-C6 and C6-C7 disc desiccation. Accompanying mild loss of disc height. Minimal disc desiccation with preserved disc height at remaining levels. Additional findings are as follows: Craniocervical junction: Intact. No central canal or neural foraminal compromise. C2-C3: No central canal or C3 neural foraminal compromise. C3-C4: No central canal or C4 neural foraminal compromise. C4-C5: No central canal or C5 neural foraminal compromise. Mild left degenerative facet without appreciable joint effusion. C5-C6: No central canal or C6 neural foraminal compromise. Central/right paracentral posterior disc protrusion. No spinal cord contact. Anterior disc protrusion with osteophyte mildly indents the contiguous hypopharynx. C6-C7: No central canal or C7 neural foraminal compromise. Central/left paracentral type 1 degenerative endplate reaction may be ascribable to subacute Schmorl's endplate intrusion. C7-T1: No central canal or C8 neural foraminal compromise. No cervical ribs. IMPRESSION: 1. Focally accelerated C5-C6 and C6-C7 degenerative disc disease as described without central stenosis or discrete nerve root impingement. 2. Mild isolated left C3-C4 degenerative facet disease without joint effusion. . 3. Normal cervical spinal cord. This document was electronically signed by YANNICK COLEMAN MD on 10/21/2014 13:45:00 Procedure Note Yannick Coleman MD - 12/15/2014 EXAM DESCRIPTION: Cervical MR without contrast 10/21/2014 1:31 PM TECHNIQUE: Multiplanar, multisequence MR imaging of the cervical spine was acquired. COMPARISON: None INDICATION: Progressive neck pain with bilateral trapezius pain. FINDINGS: Alignment :Shallow dextroconvex rotary asymmetry. Bones: Moderate left paracentral C6-C7 type 1 marrow reaction associated with Schmorl's endplate intrusion. . Spinal Cord: Normal. Spinal stenosis: None Limited paraspinous soft tissue evaluation is unremarkable. There is C5-C6 and C6-C7 disc desiccation. Accompanying mild loss of disc height. Minimal disc desiccation with preserved disc height at remaining levels. Additional findings are as follows: Craniocervical junction: Intact. No central canal or neural foraminal compromise. C2-C3: No central canal or C3 neural foraminal compromise. C3-C4: No central canal or C4 neural foraminal compromise. C4-C5: No central canal or C5 neural foraminal compromise. Mild left degenerative facet without appreciable joint effusion. C5-C6: No central canal or C6 neural foraminal compromise. Central/right paracentral posterior disc protrusion. No spinal cord contact. Anterior disc protrusion with osteophyte mildly indents the contiguous hypopharynx. C6-C7: No central canal or C7 neural foraminal compromise. Central/left paracentral type 1 degenerative endplate reaction may be ascribable to subacute Schmorl's endplate intrusion. C7-T1: No central canal or C8 neural foraminal compromise. No cervical ribs. IMPRESSION: 1. Focally accelerated C5-C6 and C6-C7 degenerative disc disease as described without central stenosis or discrete nerve root impingement. 2. Mild isolated left C3-C4 degenerative facet disease without joint effusion. . 3. Normal cervical spinal cord. This document was electronically signed by YANNICK COLEMAN MD on 10/21/2014 13:45:00 us Subu Patricia Lopez MD IMG MRI ORDERABLES Final Result * MRI Lumbar Spine WO Contrast (10/21/2014 1:31 PM EST) Anatomical Region Laterality Modality Lumbar Spine Magnetic Resonan ce 10/21/2014 1:31 PM EST Narrative 10/21/2014 2:03 PM EST EXAM DESCRIPTION: Lumbar MR without contrast 10/21/2014 1:32 PM TECHNIQUE: Multiplanar, multisequence MR imaging of the lumbar spine was acquired. COMPARISON: None INDICATION: Chronic low back pain with bilateral lower extremity weakness. FINDINGS: Alignment: Normal. No apparent spondylolysis. Bones: Mild multilevel chronic type 2 degenerative contiguous endplate reaction throughout the lumbar spine. Multiple accompanying small chronic Schmorl's endplate intrusions. Paraspinous soft tissues: Mild symmetric hypertrophy of the paraspinous musculature. Limited paraspinous soft tissue evaluation is otherwise unremarkable. There is generalized lower thoracic and lumbar disk desiccation. Moderate loss of L4-L5 disk height. Mild loss of L1-L2 through L3-L4 disk height. Additional findings are as follows: Thoracolumbar junction: Normal conus medullaris. Incidental small filar lipoma. Unremarkable cauda equina. No lower thoracic canal or neural foraminal compromise. L1-L2: No central canal or L1 neural foraminal compromise. Small Schmorl's endplate intrusions. Otherwise preserved disc integrity. Unremarkable facets. L2-L3: No central canal or L2 neural foraminal compromise. Multiple small Schmorl's endplate intrusions. Otherwise preserved disc integrity. Unremarkable facets. L3-L4: No central canal or L3 neural foraminal compromise. Minimal bulging annulus. Mild left degenerative facet with minimal ligamentous/capsular buckling. No joint effusion. L4-L5: No central stenosis. Mild right L5 subarticular recess stenosis in part related to right subarticular annular tear with small disc protrusion. Traversing right L5 nerve root contact without compression. No foraminal stenosis. Mild symmetric degenerative facet disease without effusion. L5-S1: No central stenosis. Mild degenerative right L5 neural foraminal stenosis. No left L5 foraminal compromise. Mild symmetric degenerative facet disease with left greater than right facet joint effusion. Sacrum: The imaged superior sacroiliac joints are unremarkable. IMPRESSION: 1. Moderate multilevel degenerative disc disease without high-grade central stenosis or disc extrusion; see above. 2. L5-S1 degenerative facet disease with joint effusions. This document was electronically signed by YANNICK COLEMAN MD on 10/21/2014 14:03:00 Procedure Note Yannick Coleman MD - 12/15/2014 EXAM DESCRIPTION: Lumbar MR without contrast 10/21/2014 1:32 PM TECHNIQUE: Multiplanar, multisequence MR imaging of the lumbar spine was acquired. COMPARISON: None INDICATION: Chronic low back pain with bilateral lower extremity weakness. FINDINGS: Alignment: Normal. No apparent spondylolysis. Bones: Mild multilevel chronic type 2 degenerative contiguous endplate reaction throughout the lumbar spine. Multiple accompanying small chronic Schmorl's endplate intrusions. Paraspinous soft tissues: Mild symmetric hypertrophy of the paraspinous musculature. Limited paraspinous soft tissue evaluation is otherwise unremarkable. There is generalized lower thoracic and lumbar disk desiccation. Moderate loss of L4-L5 disk height. Mild loss of L1-L2 through L3-L4 disk height. Additional findings are as follows: Thoracolumbar junction: Normal conus medullaris. Incidental small filar lipoma. Unremarkable cauda equina. No lower thoracic canal or neural foraminal compromise. L1-L2: No central canal or L1 neural foraminal compromise. Small Schmorl's endplate intrusions. Otherwise preserved disc integrity. Unremarkable facets. L2-L3: No central canal or L2 neural foraminal compromise. Multiple small Schmorl's endplate intrusions. Otherwise preserved disc integrity. Unremarkable facets. L3-L4: No central canal or L3 neural foraminal compromise. Minimal bulging annulus. Mild left degenerative facet with minimal ligamentous/capsular buckling. No joint effusion. L4-L5: No central stenosis. Mild right L5 subarticular recess stenosis in part related to right subarticular annular tear with small disc protrusion. Traversing right L5 nerve root contact without compression. No foraminal stenosis. Mild symmetric degenerative facet disease without effusion. L5-S1: No central stenosis. Mild degenerative right L5 neural foraminal stenosis. No left L5 foraminal compromise. Mild symmetric degenerative facet disease with left greater than right facet joint effusion. Sacrum: The imaged superior sacroiliac joints are unremarkable. IMPRESSION: 1. Moderate multilevel degenerative disc disease without high-grade central stenosis or disc extrusion; see above. 2. L5-S1 degenerative facet disease with joint effusions. This document was electronically signed by YANNICK COLEMAN MD on 10/21/2014 14:03:00 Subu Patricia Lopez MD IMG MRI ORDERABLES Final Result documented in this encounter Visit Diagnoses Not on filedocumented in this encounter Care Teams Service Operations Manager Relationship Specialty Start Date End Date Riccardo Mejias [address] [place] [address] PCP - General 08/09/14 07/08/18 None, Pcp, [address] [place] [address] PCP - General 07/09/18 09/16/18 System, Provider Not In [address] [place] [address] PCP - General 09/17/18 documented as of this encounter
--- OUTSIDE RECORDS SUMMARY | 2025-01-28 07:04 | XMS_ITS | Patient Health Record ---
Author Organization [facility] Address [address] [facility] [address] [place], [place] [id number] Care Team Providers Care Winder Fixer Name Role Phone Cate FLORES, Nora Storey Primary Care Provider Unajoelle ailable Martínez Raman Unavailable [phone] Reason For Referral No Information Medications Medication [...] Status Risk Notes Problem Paroxysmal atrial fibrillation (516236475) Paroxysmal atrial fibrillation (I48.0) Active confirmed Problem Tobacco abuse (20866356) Tobacco abuse (Z72.0) Active confirmed Problem Obstructive sleep apnea (31827001) Obstructive sleep apnea (G47.33) Active confirmed Problem Hypersomnia (28233127) Hypersomnia (G47.10) Active confirmed Problem Gastroesophageal reflux disease (087609710) GERD (gastroesophage al reflux disease) (K21.9) Active confirmed Plan Of Treatment Pending Test Test Name Order Date Sleep Home Sleep Testing 02/21/2018 XR CHEST 2 VW 02/19/2018 Future Test Test Name Order Date SLEEP STUDY-SPLIT 05/30/2018 Insurance Providers Payer Name Payer Address Payer Phone Subscriber Number Group Number Insured Name Patient Relationship to Insured Coverage Start Date Coverage End Date [facility] [address] [place] [address] [id number] Robel Fiore Self - patient is the insured Medical (General) History Medical History History ICD Code Paroxysmal atrial fibrillation I48.0 Anxiety F41.9 ADHD (attention deficit hyperactivity di sorder) F90.9 GERD (gastroesophageal reflux disease) K 21.9 Surgical History Surgery Date(Month/Year) Nasal septoplasty
--- OUTSIDE RECORDS SUMMARY | 2025-01-28 07:04 | XMS_ITS | Encounter Summary ---
Author Organization [facility] Address [address] [place] [address] Care Team Providers Care Exchange Architect Name Role Phone Riccardo Mejias Darlene Primary Care Provider [phone] None, Pcp Primary Care Provider Unavailabl e System, Provider Not In Primary Care Provider Un available Encounter Details Date Type Department Care Team (Late st Contact Info) Description 12/22/2008 Clinical Conversion Encounter [facility] [address] [place] [address] Nathna Nelson Jr., [address] [place] [address] Social History Tobacco Use Types Packs/Day Years Used Date Smoking Tobacco: Never Assessed Sex and Gender Information Value Date Recorded Sex Assigned at Male 09/17/2018 11:34 AM EST Legal Sex Male 3:14 AM EST Gender Identity Male 09/17/2018 11:34 AM EST Sexual Orientation Not on file documented as of this encounter Miscellaneous Notes * Op Note - Nathan Nelson Jr., DO - 12/06/2014 3:32 PM EDT [id number] [facility] [place] 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 ANESTHESIA: Local Anesthetic. INDICATIONS: Bilateral sided low back pain rated a 8 out of 10 on the numerical pain scale. OPERATIVE PROCEDURE: The patient was interviewed and the medical record reviewed. There were no medical, pharmacologic, radiographic or other structural contraindications to attempting fluoroscopically guided medial branch blocks. The benefits, alternatives, and risks of the procedure including but not limited to bleeding, infection, nerve damage, and worsening of the pain were discussed with the patient. After all patient concerns were addressed, an informed consent was signed by the patient and witnessed. The patient was placed prone on the fluoroscopy table and automated blood pressure cuff and pulse oximeter applied. Skin entry points for approaching the anatomic target points of the segmental medial branches of bilateral L3-4, L4-5 and L5-S1 were identified under fluoroscopy. The skin was marked, thoroughly cleaned with Chlorhexidine, and draped in the usual sterile fashion. The skin and subcutaneous tissues were anesthetized with 2-mL of 1% Lidocaine. A 22-gauge spinal needle was placed under direct fluoroscopic guidance down onto the target point for each respective segmental medial branch. Needle positioning was confirmed with AP, oblique, and lateral fluoroscopic views. There was negative aspiration for heme and CSF. This was followed by injection of 1-cc of 0.25% Marcaine at each level. The patient's vital signs were stable throughout the procedure and were as recorded in the nursing records. The patient tolerated the procedure well without any complications. Immediately after the procedure, the patient noted significant pain relief and rated the pain a 4 out of 10. he was quite pleased. The patient was instructed to keep a pain diary on how the usual pain was modified by this procedure. Postprocedure instruction was given as documented in nursing records and having met discharge criteria, the patient was [facility]. We will follow up with the patient by phone in one week to assess outcome and to direct medical care accordingly. ESTIMATED BLOOD LOSS: None. SPECIMENS: None. COMPLICATIONS: None. Nathan Nelson Jr., DO [phone] JPS: J: [id number] CC: Riccardo Mejias MD, <Primary Care Physician> THIS DOCUMENT WAS ELECTRONICALLY AUTHENTICATED BY Nathan Nelson Jr., DO ON 12/22/2008 20:03:42 <STARTFOOTER> AMBULATORY OPERATIVE REPORT Page 2 of 2 <ENDFOOTER> documented in this encounter Plan of Treatment Not on file documented as of this encounter Visit Diagnoses Not on filedocumented in this encounter Care Teams Exchange Architect Relationship Specialty Start Date End Date Riccardo Mejias [address] [place] [address] PCP - General 08/09/14 07/08/18 None, PcpMD [address] [place] [address] PCP - General 07/09/18 09/16/18 System, Provider Not In [address] [place] [address] PCP - General 09/17/18 documented as of this encounter
--- OUTSIDE RECORDS SUMMARY | 2025-01-28 07:04 | XMS_ITS | Clinical Summary ---
Author Organization [facility] Address [address] [place] [address] Care Team Providers Care Soft Shoe Dancer Name Role Phone Rothbury, Jess SANDRA Primary Care Provider [phone] Allergies No known active allergies Medications omeprazole [...] - Tdap) 1999 COVID-19 Vaccine (1 - 2023- season) 2024 Alcohol/Substance Use Screening 09/30/2024 Depression Screening and Follow-Up 09/30/2024 Social Drivers of Health Annual Screening 09/30/2024 Influenza Vaccine (Season Ended) 2025 RSV Vaccine (60+ years old a nd patients) (1 - 1-dose 75+ series) 2052 Insurance MEDICARE [facility] Care Teams Soft Shoe Dancer Relationship Specialty Start Date End Date Jess Abreu NP [address] [place] [address] PCP - General Nurse Practitioner 10/26/22
--- OUTSIDE RECORDS SUMMARY | 2025-01-28 07:04 | XMS_ITS | Clinical Summary ---
Author Organization Randa Staples [facility] Address [address] [place] [address] Care Team Providers Care Chief Fishery Division Name Role Phone System, Provider Not In Primary Care Provider Un available Allergies Active Allergy Reactions Criticality Noted Date Comments No Known Drug Allergies Other (See Comments) Medications omeprazole (PriLOSEC) 20 MG capsule 10/21/2014 Active Active Problems Problem Noted Date Diagnosed Date Lumbosacral spondylosis without myelopathy 08/29 Overview (08/29/2018): Added automatically from request for surgery [id number] Lumbar radiculopathy 07/09/2018 Spondylosis of cervical spine 10/21/2014 Overview (11/29/2014): Cervical Spondylosis Lumbar spondylosis 10/21/2014 Overview (11/29/2014): Lumbar Spondylosis: LUMBOSACRAL SPONDYLOSIS - 721.3 Degeneration of lumbar intervertebral disc 11/17 Overview (11/29/2014): Lumbar Disc Degeneration: LUMB/LUMBOSAC DISC DEGEN - 722.52 Social History Tobacco Use Types Packs/Day Years Used Date Smoking Tobacco: Former Smokeless Tobacco: Never Sex and Gender Information Value Date Recorded Sex Assigned at Male 09/17/2018 11:34 AM EST Legal Sex Male 3:14 AM EST Gender Identity Male 09/17/2018 11:34 AM EST Sexual Orientation Not on file Last Filed Vital Signs Vital Sign Reading Time Taken Comments Blood Pressure 120/69 09/18/2018 10:03 AM EST Pulse 72 09/18/2018 10:03 AM EST Temperature 36.8 ??C (98.2 ??F) 09/18/2018 9:35 AM ES T Respiratory Rate 16 09/18/2018 10:03 AM EST Oxygen Saturation 100% 09/18/2018 10:03 AM EST Inhaled Oxygen Concentration - - Weight 97.5 kg (215 lb) 08/29/2018 10:30 AM EST Height 190.5 cm (6' 3 ) 08/29/2018 10:30 AM EST Body Mass Index 26.87 08/29/2018 10:30 AM EST Plan of Treatment Health Maintenance Due Date Last Done Comments Blood Pressure 1977 Lipid Panel 1977 Depression Screening 1981 Hepatitis C Screening 1995 DTaP,Tdap,and Td Vaccines (1 - Tdap) 1996 CT Colonography 2022 Colonoscopy 2022 Colorectal Cancer Screening 2022 FIT 2022 FOBT 2022 Multitarget Stool DNA (Cologuard) 2022 Sigmoidoscopy 2022 COVID-19 Vaccine ( - 2023-2 5 season) 2024 Influenza Vaccine (Season Ended) 2025 Meningococcal Vaccines Aged Out No lo nger eligible based on patient's age to complete this topic Pneumococcal Vaccine: Pediat rics (0 to 5 Years) and At-Risk Patients (6 to 64 Years) Aged Out No longer eligible b ased on patient's age to complete this topic Insurance [facility] Care Teams Chief Fishery Division Relationship Specialty Start Date End Date System, Provider Not In PCP - General 09/17/18
--- OUTSIDE RECORDS SUMMARY | 2025-01-28 07:04 | XMS_ITS | Encounter Summary ---
Author Organization Randa Staples [facility] Address [address] [place] [address] Care Team Providers Care Lime Mixer Tender Name Role Phone Riccardo Mejias Darlene Primary Care Provider [phone] None, Pcp Primary Care Provider Unavailabl e System, Provider Not In Primary Care Provider Un available Encounter Details Date Type Department Care Team (Late st Contact Info) Description 12/25/2010 Clinical Conversion Encounter Department of Neurosurgery [address] [place] [address] Demetrius Kennedy MD Social History Tobacco Use Types Packs/Day Years Used Date Smoking Tobacco: Never Assessed Sex and Gender Information Value Date Recorded Sex Assigned at Male 09/17/2018 11:34 AM EST Legal Sex Male 3:14 AM EST Gender Identity Male 09/17/2018 11:34 AM EST Sexual Orientation Not on file documented as of this encounter Progress Notes * Demetrius Kennedy MD - 10/21/2014 10:42 PM EST [id number] FIORE [place], [place]. NEUROSURGERY ROBEL FIORE 12/25/2010 # [id number] : 1975 Second Visit ID: [id number] Visit ID: [id number] HISTORY OF PRESENT ILLNESS: Mr. Fiore is a 35-year-old gentleman who presents to our clinic for evaluation of chronic low back pain. In the past, he was seen by Dr. Charlton and Dr. Lopez, but no surgery was offered. He has been having low back pain for the past seven years. 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 Because of his pain symptoms, he has not been able to participate in any physical activities. When he was in high school and college, he was fairly active in different sports activities. Over the last seven years, he has been having pain across his low back down into the sacral region. He also has intermittent pain into both lower extremities. He has no woody weakness. He has done physical therapy as well as epidural injections without much relief. MEDICATIONS: Oxycodone 15 mg 6 times a day. SOCIAL HISTORY: The patient is and is a stay home dad. He smokes about half a pack of cigarettes per day. IMAGING STUDIES: I personally reviewed the lumbar spine MRI, which shows evidence of degenerative disk disease at L2-L3, L3-L4, L4-L5, and L5-S1. There is evidence of Modic changes at the end plates at all these levels, but it is mostly prominent at L4-L5 and L5-S1. There has been a worsening of subsidence of disk height compared to the previous MRI scan in 2006. There is a mild foraminal stenosis at L5-S1 on the right side, but no significant spinal canal stenosis. There is subsidence of disk height at L3-L4 and L4-L5. IMPRESSION AND PLAN: Mr. Fiore is a 35-year-old gentleman who has had a seven-year history of low back pain that has not improved with conservative therapies. It appears that the L5-S1 disk has slightly worsened compared to the previous MRI scan in 2006, more noticeable Modic changes at the endplates as well as further subsidence of disk height. However other levels about the same. At this time because of the multilevel involvement, I told Mr. Fiore that the surgery is probably not the best option given his age. We have discussed the pros and cons of the surgery. He still smokes about half a pack of cigarettes per day and I told him that smoking can have deleterious effect on the disk and it can expedite the degenerative process. It is unclear that whether the smoking is the primary factor in causing such extensive degenerative changes, but I told him that it certainly is a significant contributing factor. Again, at this time, I think he should continue to pursue conservative therapies and defer any type of lumbar reconstructive surgery. Demetrius Kennedy MD [phone] [id number] J: [id number] CC: Ernie Charlton MD, <Referring> Riccardo Mejias MD, <Second referring Dr Name> THIS DOCUMENT WAS ELECTRONICALLY AUTHENTICATED BY Demetrius Kennedy MD ON 01/04/2011 13:02:48 PROGRESS NOTE [facility] * [address] [place] [address] * [phone] Page 2 of 2 documented in this encounter Plan of Treatment Not on file documented as of this encounter Procedures Procedure Name Priority Date/Time Associated Diagnosis Comments MRI LUMBAR SPINE WO CONTRAST Routine 12/25/2010 2:36 PM EDT documented in this encounter Results * MRI Lumbar Spine WO Contrast (12/25/2010 2:36 PM EDT) Anatomical Region Laterality Modality Lumbar Spine Magnetic Resonan ce 12/25/2010 2:36 PM EDT Narrative 12/25/2010 3:16 PM EDT MRI lumbar spine without contrast History:DX R SIDE SCIATICA Technique: Noncontrast 1.5 Livia routine lumbar protocol Comparison: 2009 MRI lumbar Findings: Conus remains unremarkable Minor differences and endplate T2 bright edema degenerative type signal have occurred; some decrease in L3-L4 and L4-L5 endplate edema has occurred in the interval, while L5-S1 degenerative endplate edema remains stable posteriorly. Disc protrusions are completely unchanged, including broad-based right foraminal focal moderate size protrusion at L4-5. Disc protrusion moderately crowds the right foramen, approaching high-grade encroachment in the same fashion. There is mild inferior extrusion of disc material from the same level in the same fashion. Borderline mild tricompartmental spinal stenosis present L3-L4. Broad-based disc bulging L5-S1, mildly spondylotic, with a smaller right lateral stable protrusion associated. Schmorl's nodes noted again L1-2 through L5-S1, with mild reactive signal changes associated. Impression:No change in multilevel disc protrusions, largest in the right foraminal region of L4-L5. No high-grade central stenosis. Mild changes and endplate edema signal have occurred in the interval as detailed above. This document was electronically signed by ELISEO HONG MD on 12/25/2010 15:16:00 Procedure Note Eliseo Hong MD - 12/01/2014 MRI lumbar spine without contrast History:DX R SIDE SCIATICA Technique: Noncontrast 1.5 Livia routine lumbar protocol Comparison: 2010 MRI lumbar Findings: Conus remains unremarkable Minor differences and endplate T2 bright edema degenerative type signal have occurred; some decrease in L3-L4 and L4-L5 endplate edema has occurred in the interval, while L5-S1 degenerative endplate edema remains stable posteriorly. Disc protrusions are completely unchanged, including broad-based right foraminal focal moderate size protrusion at L4-5. Disc protrusion moderately crowds the right foramen, approaching high-grade encroachment in the same fashion. There is mild inferior extrusion of disc material from the same level in the same fashion. Borderline mild tricompartmental spinal stenosis present L3-L4. Broad-based disc bulging L5-S1, mildly spondylotic, with a smaller right lateral stable protrusion associated. Schmorl's nodes noted again L1-2 through L5-S1, with mild reactive signal changes associated. Impression:No change in multilevel disc protrusions, largest in the right foraminal region of L4-L5. No high-grade central stenosis. Mild changes and endplate edema signal have occurred in the interval as detailed above. This document was electronically signed by ELISEO HONG MD on 12/25/2010 15:16:00 Ernie Charlton MD IMG MRI ORDERABLES Final Re sult documented in this encounter Visit Diagnoses Not on filedocumented in this encounter Care Teams Lime Mixer Tender Relationship Specialty Start Date End Date Riccardo Mejias [address] [place] [address] PCP - General 08/09/14 07/08/18 None, PcpMD [address] [place] [address] PCP - General 07/09/18 09/16/18 System, Provider Not In [address] [place] [address] PCP - General 09/17/18 documented as of this encounter
--- OUTSIDE RECORDS SUMMARY | 2025-01-28 07:04 | XMS_ITS | Encounter Summary ---
Author Organization Randa Staples [facility] Address [address] [place] [address] Care Team Providers Care Order Clerk Name Role Phone RandellRiccardo workman Darlene Primary Care Provider [phone] None, Pcp Primary Care Provider Unavailabl e System, Provider Not In Primary Care Provider Un available Encounter Details Date Type Department Care Team (Late st Contact Info) Description 11/17/2009 Clinical Conversion Encounter Department of Neurosurgery [address] [place] [address] Stanley Chan, SANDRA [address] [place] [address] Social History Tobacco Use Types Packs/Day Years Used Date Smoking Tobacco: Never Assessed Sex and Gender Information Value Date Recorded Sex Assigned at Male 09/17/2018 11:34 AM EST Legal Sex Male 3:14 AM EST Gender Identity Male 09/17/2018 11:34 AM EST Sexual Orientation Not on file documented as of this encounter Progress Notes * Stanley Chan NP - 10/19/2014 10:17 AM EST [id number],MICHAEL [place]. NEUROSURGERY ROBEL FIORE 11/17/2009 # [id number] : 1975 Second Visit ID: [id number] Visit ID: [id number] HISTORY OF PRESENT ILLNESS: Mr. Fiore returns to neurosurgery clinic today. He is a patient who has been followed by Dr. Lopez for several years for ongoing symptoms related to lumbar spondylosis. Briefly, the patient is a 34-year-old gentleman who has a longstanding history of chronic low back pain. The patient has tried numerous interventions including physical therapy and various injection therapies. Recently, he had experienced crepitus of the low back with persistent symptoms, and as such, has undergone a new MRI and comes to Neurosurgery for further evaluation and discussion of potential treatment options. PAST MEDICAL HISTORY: Unremarkable. ALLERGIES TO MEDICATIONS: No known drug allergies. CURRENT MEDICATIONS: Negative. SOCIAL HISTORY: This is a young, gentleman with a 3-year-old son. 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 PHYSICAL EXAMINATION: This is a well-nourished and developed, well-appearing young gentleman in no apparent distress. On exam, hip flexors, knee extensors, ankle dorsi and plantarflexors are full strength bilaterally throughout. Patella and Achilles DTRs are 2+ symmetrically, toes are downgoing. Sensation is intact in proximal and distal lower extremities symmetrically. Gait is symmetric and steady. The patient is able to ascend on heels and toes without difficulty. He has full range of motion with back flexion. He has objective pain indication with extension. There are no obvious spinal asymmetry/injuries. The lumbar spine is nontender to palpation. The patient has overall good general coordination, symmetric tone and bulk throughout. RADIOGRAPHIC DATA: Lumbar MRI reviewed with Dr. Lopez today and compared to prior study of 2008 demonstrates multilevel degenerative disk disease with Modic endplate changes at L4-L5 as well as moderate degenerative changes at L2-L3, L3-L4, and L1-L2. There is no stenosis of the canal. No neural tissue compression is evident. There is overall good alignment and spacing without indication of fracture/instability. IMPRESSION: Lumbar spondylosis, multilevel degenerative disk disease. ASSESSMENT AND PLAN: Overall, Mr. Fiore is a pleasant 34-year-old gentleman who unfortunately continues to experience a significant degree of mid low back pain and discomfort. His imaging findings demonstrate multilevel degenerative disk disease with spondylosis. The imaging findings are shared in detail with the patient. Given the number of disks involved, the success with surgery is relatively small. He may be a candidate for artificial disk technology in the future; however, at this point, surgery is not advised. We have, however, recommended the patient consider an aggressive course of back school with at [facility]. We have provided him this information and he will consider this option. He will contact us in the future as needed. Stanley Chan RN [employer] [phone] [id number] J: [id number] CC: Gopal Lopez MD, <Referring> Riccardo Mejias MD, <Primary Care Physician> THIS DOCUMENT WAS DICTATED AND AUTHENTICATED BY Stanley Chan RN [employer], ON 12/07/2009 14:22:20, AND FORWARDED TO THE ATTENDING PHYSICIAN FOR FINAL AUTHENTICATION. THIS DOCUMENT WAS ELECTRONICALLY AUTHENTICATED BY Gopal Lopez MD ON 12/13/2009 14:19:43 PROGRESS NOTE [facility] * [address] [place] [address] * [phone] Page 2 of 2 documented in this encounter Plan of Treatment Not on file documented as of this encounter Visit Diagnoses Not on filedocumented in this encounter Care Teams Order Clerk Relationship Specialty Start Date End Date Riccardo Mejias [address] [place] [address] PCP - General 08/09/14 07/08/18 None, PcpMD [address] [place] [address] PCP - General 07/09/18 09/16/18 System, Provider Not In [address] [place] [address] PCP - General 09/17/18 documented as of this encounter
--- OUTSIDE RECORDS SUMMARY | 2025-01-28 07:04 | XMS_ITS | Referral Summary ---
Author Organization [facility] Address [address] [place] [address] Care Team Providers Care Ms Sql Server Developer Name Role Phone [place], Jess SANDRA Primary Care Provider [phone] Allergies No known active allergies Medications omeprazole [...] of Treatment Not on file Insurance MEDICARE [facility] [employer] Care Teams Ms Sql Server Developer Relationship Specialty Start Date End Date Jess Abreu NP [address] [place] [address] PCP - General Nurse Practitioner 10/26/22
== END 2025-01-28 07:03 | disposition home or self-care (01) ==
LOC: CF 07:02
PROVIDERS: Visit Provider Internal Medicine
DX: M54.16 Radiculopathy, lumbar region (principal); Z98.1 Arthrodesis status
CPT/HCPCS: 64483; J1100; J2003; Q9967

== ENCOUNTER 2025-01-28 08:55 | Outpatient (AMB) | payer BC, SELFPAY ==
[2025-01-28 09:03] VITALS: BP 118/72; PULSE 84; RESP 16; O2SAT 99
--- NOTE | 2025-01-28 09:03 | A.OFFVIS_ITS ---
Vital Signs 01/28/25 09:03 01/28/25 09:42 BP 118/72 126/80 Blood Pressure Location Lt brachial Lt brachial Position Sitting Sitting Respiration 16 16 Pulse 84 75 Pulse Source Pulse Oximeter Pulse Oximeter Pulse Oximetry (%) 99 99 Oxygen Delivery Method Room Air Room Air Intake Visit Reasons: Right L5 TFESI Trust And Estates Attorney Required: No Allergies avocado Allergy (Intermediate, Verified 01/28/25 09:04) lip swelling prednisone Adverse Reaction (Severe, Verified 01/28/25 09:04) panic attacks/severe anxiety Medication List - Last Reconciled 01/28/25 by Lolita Azul LPN baclofen 10 mg PO QID PRN gabapentin 300 mg PO TID PRN hydroxyzine HCl 25 mg PO TID magnesium oxide 400 mg PO DAILY omeprazole 40 mg PO DAILY@0630 oxycodone 5 mg PO Q8H PRN HPI HPI Right L5 TFESI: Details: Patient presents for scheduled procedure. Denies any recent cough, cold, infection, fever or other significant changes in medical history since last office visit. [facility] Medical History (Updated 01/28/25 @ 10:24 by Jorge Portillo MD) Sleep disorder Opiate dependence History of cardioversion Afib Arthritis GERD (gastroesophageal reflux disease) Fracture Back pain Lumbar degenerative disc disease Surgical History (Updated 07/07/24 @ 13:34 by ZULEMA Gonzalez) History of esophagogastroduodenoscopy (EGD) H/O colonoscopy Hx of nasal septoplasty Social History Household Members: Spouse Housing: House Are you a primary care analyst to a significant other at home: No Do you presently have visiting nurse or other home services: No Patient Tobacco Use Status: Former Tobacco user Tobacco use type: Cigarette Years Smoked: 20 Substance Use Type: Marijuana service: No Physical Exam Vital Signs: Last Vital Signs Pulse 75 01/28/25 09:42 Resp 16 01/28/25 09:42 BP 126/80 01/28/25 09:42 Pulse Ox 99 01/28/25 09:42 Oxygen Delivery Method Room Air 01/28/25 09:42 Office Procedures Details: Transforaminal epidural steroid injection, Right L5 After obtaining written consent, pre-procedure blood pressure and heart rate were stable and recorded in the nursing record. The patient was placed in the prone position on the fluoroscopy table. The lumbosacral area was prepped with chloraprep, allowed to dry and draped in sterile fashion. Using fluoroscopy, the skin overlying our target was anesthetized with 0.5% lidocaine. A 22 gauge 3.5 inch spinal needle was advanced to the safe triangle in the upper pole of the right L5 foramen. No paresthesias were elicited with needle placement and aspiration was negative for blood and CSF. Correct needle position was confirmed with approximately 1 ml contrast dye (Omnipaque 180 mg/ml) injected under real-time fluoroscopy. No evidence of vascular or intrathecal uptake was seen and there was both epidural and peripheral spread of the contrast agent. 10 mg dexamethasone plus 1 ml containing 0.5% lidocaine was slowly injected. The needle was flushed and rem zak. The skin was cleansed and a sterile bandages were applied. The patient tolerated the procedure well and no complications were encountered. Following the procedure the patient's vital signs were stable. The patient was discharged home in good condition with post-procedural instructions. Time Out: Immediately prior to the procedure, the following was verbally confirmed that there is a signed consent form and that the correct patient, planned procedure, site and side are consistent with documentation and that necessary equipment and/or blood products are available prior to the start of t he case. Complications: none EBL: <5 cc 34316 - Lumbar/Sacral Procedure code (CPT) selection complete Assessment & Plan Assessment & Plan (1) Lumbar radicular pain: Code(s): M54.16 - Radiculopathy, lumbar region Category: Medical Plan Patient is status post right L5 TFESI. Patient tolerated procedure well and was discharged home in stable condition with discharge instructions. All questions were answered. We will follow-up via telephone or in clinic to assess response to therapy. A follow-up appointment was made during today's visit. Orders: Orders FL guidance in treatment room Today Shasta Gu APRN, GEOTHERMAL SYSTEM INSTALLER Z98.1 - Arthrodesis status AMB Transforaminal Epidural Steroid Injection Today Jorge Portillo MD M54.16 - Radiculopathy, lumbar region Coding Level of Care Code Procedure Only Diagnoses Lumbar radicular pain M54.16 CPT Codes Transforaminal Epidural Steroid Inj - TESI 3: 99104 - Lumbar/Sacral ([id number])
--- OUTSIDE RECORDS SUMMARY | 2025-01-28 09:25 | XMS_ITS | Referral Summary ---
Author Organization [facility] Address [address] [place] [address] Care Team Providers Care Environmental Remediation Specialist Name Role Phone [place], Jess SANDRA Primary Care Provider [phone] Allergies No known active allergies Medications omeprazole [...] of Treatment Not on file Insurance MEDICARE [facility] [employer] Care Teams Environmental Remediation Specialist Relationship Specialty Start Date End Date Jess Abreu NP [address] [place] [address] PCP - General Nurse Practitioner 10/26/22
--- OUTSIDE RECORDS SUMMARY | 2025-01-28 09:25 | XMS_ITS | Encounter Summary ---
Author Organization Randa Staples [facility] Address [address] [place] [address] Care Team Providers Care Dovetailer Name Role Phone Riccardo Mejias Darlene Primary Care Provider [phone] None, Pcp Primary Care Provider Unavailabl e System, Provider Not In Primary Care Provider Un available Encounter Details Date Type Department Care Team (Late st Contact Info) Description 12/22/2008 Clinical Conversion Encounter [facility] [address] [place] [address] Nathan Nelson Jr., [address] [place] [address] Social History Tobacco Use Types Packs/Day Years [...] Jr., DO - 12/06/2014 3:32 PM EDT [id number] [facility]OREST[facility] [place] 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 ANESTHESIA: Local Anesthetic. INDICATIONS: Bilateral sided low [...] None. COMPLICATIONS: None. Nathan Nelson Jr., DO [phone] JPS: J: [id number] CC: Riccardo Mejias MD, <Primary Care Physician> THIS DOCUMENT WAS ELECTRONICALLY AUTHENTICATED BY Nathan Nelson Jr., DO ON 12/22/2008 20:03:42 <STARTFOOTER> AMBULATORY OPERATIVE REPORT Page 2 of 2 <ENDFOOTER> documented in this encounter Plan of Treatment Not on file documented as of this encounter Visit Diagnoses Not on filedocumented in this encounter Care Teams Dovetailer Relationship Specialty Start Date End Date Riccardo Mejias [address] [place] [address] PCP - General 08/09/14 07/08/18 None, PcpMD [address] [place] [address] PCP - General 07/09/18 09/16/18 System, Provider Not In [address] [place] [address] PCP - General 09/17/18 documented as of this encounter
--- OUTSIDE RECORDS SUMMARY | 2025-01-28 09:25 | XMS_ITS | Encounter Summary ---
Author Organization [facility]anda [facility] Address [address] [place] [address] Care Team Providers Care Bacon Stringer Name Role Phone Riccardo Mejias Darlene Primary Care Provider [phone] None, Pcp Primary Care Provider Unavailabl e System, Provider Not In Primary Care Provider Un available Encounter Details Date Type Department Care Team (Late st Contact Info) Description 12/25/2010 Clinical Conversion Encounter Department of Neurosurgery [address] [place] [address] Demetrius Kennedy MD Social History Tobacco Use [...] Kennedy MD - 10/21/2014 10:42 PM EST [id number] FIORE [place], [place]. NEUROSURGERY ROBEL FIORE 12/25/2010 # [id number] : 1975 Second Visit ID: [id number] Visit ID: [id number] HISTORY OF PRESENT ILLNESS: Mr. Fiore is [...] of lumbar reconstructive surgery. Demetrius Kennedy MD [phone] [id number] J: [id number] CC: Ernie Charlton MD, <Referring> Riccardo Mejias MD, <Second referring Dr Name> THIS DOCUMENT WAS ELECTRONICALLY AUTHENTICATED BY Demetrius Kennedy MD ON 01/04/2011 13:02:48 PROGRESS NOTE [facility] * [address] [place] [address] * [phone] Page 2 of 2 documented in this [...] on filedocumented in this encounter Care Teams Bacon Stringer Relationship Specialty Start Date End Date Riccardo Mejias [address] [place] [address] PCP - General 08/09/14 07/08/18 None, PcpMD [address] [place] [address] PCP - General 07/09/18 09/16/18 System, Provider Not In [address] [place] [address] PCP - General 09/17/18 documented as of this encounter
--- OUTSIDE RECORDS SUMMARY | 2025-01-28 09:25 | XMS_ITS | Encounter Summary ---
Author Organization [facility]anda Sta[facility] Address [address] [place] [address] Care Team Providers Care Car Salesman Name Role Phone RandelliRccardo workman Darlene Primary Care Provider [phone] None, Pcp Primary Care Provider Unavailabl e System, Provider Not In Primary Care Provider Un available Encounter Details Date Type Department Care Team (Late st Contact Info) Description 11/17/2009 Clinical Conversion Encounter Department of Neurosurgery [address] [place] [address] Stanley Chan, SANDRA [address] [place] [address] Social History Tobacco Use Types Packs/Day Years Used Date Smoking Tobacco: Never Assessed Sex and Gender Information Value Date Recorded Sex Assigned at Male 09/17/2018 11:34 AM EST Legal Sex Male 3:14 AM EST Gender Identity Male 09/17/2018 11:34 AM EST Sexual Orientation Not on file documented as of this encounter Progress Notes * Stanley Chan NP - 10/19/2014 10:17 AM EST [id number],MICHAEL [place], [place]. NEUROSURGERY ROBEL FIORE 11/17/2009 # [id number] : 1975 Second Visit ID: [id number] Visit ID: [id number] HISTORY OF PRESENT ILLNESS: Mr. Fiore returns [...] He is on disability and is a jzyg-bm-outt father. PHYSICAL EXAMINATION: This is a well-nourished [...] aggressive course of back school with at [employer]. We have provided him this information and he will consider this option. He will contact us in the future as needed. Stanley Chan RN TECHNOLOGY INSTRUCTOR [phone] [id number] J: [id number] CC: Gopal Lopez MD, <Referring> Riccardo Mejias MD, <Primary Care Physician> THIS DOCUMENT WAS DICTATED AND AUTHENTICATED BY Stanley Chan RN TECHNOLOGY INSTRUCTOR, ON 12/07/2009 14:22:20, AND FORWARDED TO THE ATTENDING PHYSICIAN FOR FINAL AUTHENTICATION. THIS DOCUMENT WAS ELECTRONICALLY AUTHENTICATED BY Gopal Lopez MD ON 12/13/2009 14:19:43 PROGRESS NOTE [facility] * [address] [place] [address] * [phone] Page 2 of 2 documented in this encounter Plan of Treatment Not on file documented as of this encounter Visit Diagnoses Not on filedocumented in this encounter Care Teams Car Salesman Relationship Specialty Start Date End Date Riccardo Mejias [address] [place] [address] PCP - General 08/09/14 07/08/18 None, PcpMD [address] [place] [address] PCP - General 07/09/18 09/16/18 System, Provider Not In [address] [place] [address] PCP - General 09/17/18 documented as of this encounter
--- OUTSIDE RECORDS SUMMARY | 2025-01-28 09:25 | XMS_ITS | Encounter Summary ---
Author Organization [facility]anda Sta[facility] Address [address] [place] [address] Care Team Providers Care Petrol Tanker Driver Name Role Phone RandellRiccardo workman Darlene Primary Care Provider [phone] None, Pcp Primary Care Provider Unavailabl e System, Provider Not In Primary Care Provider Un available Encounter Details Date Type Department Care Team (Late st Contact Info) Description 10/21/2014 Clinical Conversion Encounter Department of Neurosurgery [address] [place] [address] Stanley Chan, FRAME PULLEY MORTISING MACHINE OPERATOR [address] [place] [address] Social History Tobacco Use Types Packs/Day Years Used Date Smoking Tobacco: Some Days Sex and Gender Information Value Date Recorded Sex Assigned at Male 09/17/2018 11:34 AM EST Legal Sex Male 3:14 AM EST Gender Identity Male 09/17/2018 11:34 AM EST Sexual Orientation Not on file documented as of this encounter Progress Notes * Stanley Chan NP - 11/26/2014 5:49 PM EST [id number],MICHAEL [place], [place]. NEUROSURGERY 10/21/2014 Name: ROBEL FIORE LC#: [id number] : 1975 Visit ID: [id number] Second Visit ID: [id number] HISTORY OF PRESENT ILLNESS: Mr. Fiore returns [...] per x many years. He is a fjwb-zm-pepl dad to an autistic child. He is [...] orthopedic consultation closer to his home in [place], [place]. This is certainly reasonable. The patient does seem entirely satisfied with the discussion and plan of care. Stanley Chan RN FRAME PULLEY MORTISING MACHINE OPERATOR [phone] [id number] J: [id number] / [id number] CC: Riccardo Mejias MD, <Primary Care Physician> Gopal Lopez MD, <Referring> THIS DOCUMENT WAS ELECTRONICALLY AUTHENTICATED BY Stanley Chan RN, FRAME PULLEY MORTISING MACHINE OPERATOR ON 11/09/2014 11:07:06 documented in this encounter [...] on filedocumented in this encounter Care Teams Petrol Tanker Driver Relationship Specialty Start Date End Date Riccardo Mejias [address] [place] [address] PCP - General 08/09/14 07/08/18 None, Pcp, [address] [place] [address] PCP - General 07/09/18 09/16/18 System, Provider Not In [address] [place] [address] PCP - General 09/17/18 documented as of this encounter
--- OUTSIDE RECORDS SUMMARY | 2025-01-28 09:25 | XMS_ITS | Clinical Summary ---
Author Organization [facility] Address [address] [place] [address] Care Team Providers Care Shaper Setter Name Role Phone [place], Jess SANDRA Primary Care Provider [phone] Allergies No known active allergies Medications omeprazole [...] - 1-dose 75+ series) 2052 Insurance MEDICARE [facility] Care Teams Shaper Setter Relationship Specialty Start Date End Date Jess Abreu NP [address] [place] [address] PCP - General Nurse Practitioner 10/26/22
--- OUTSIDE RECORDS SUMMARY | 2025-01-28 09:25 | XMS_ITS | Clinical Summary ---
Author Organization [facility] Sta[facility] Address [address] [place] [address] Care Team Providers Care Pad Cutter Name Role Phone System, Provider Not In Primary Care Provider Un available Allergies Active Allergy Reactions Criticality Noted Date Comments No Known Drug Allergies Other (See Comments) Medications omeprazole (PriLOSEC) 20 MG capsule 10/21/2014 Active Active Problems Problem Noted Date Diagnosed Date Lumbosacral spondylosis without myelopathy 08/29 Overview (08/29/2018): Added automatically from request for surgery [id number] Lumbar radiculopathy 07/09/2018 Spondylosis of cervical spine [...] patient's age to complete this topic Insurance [facility] Care Teams Pad Cutter Relationship Specialty Start Date End Date System, Provider Not In PCP - General 09/17/18
[2025-01-28 09:42] VITALS: BP 126/80; PULSE 75; RESP 16; O2SAT 99
== END 2025-01-28 10:02 | disposition home or self-care (01) ==
LOC: HO.PMCPRC 08:56
PROVIDERS: PCP Nurse Practitioner Family; Visit Provider Internal Medicine
DX: M54.16 Radiculopathy, lumbar region (principal)
CPT/HCPCS: 64483

== ENCOUNTER 2025-02-26 12:18 | Outpatient (AMB) | payer BC, SELFPAY ==
--- NOTE | 2025-02-26 12:23 | MHC.OFFVIS ---
Vital Signs 02/26/25 12:24 Height 6 ft 3 in Weight 215 lb BMI 26.9 BP 131/75 Blood Pressure Location Lt brachial Position Sitting Respiration 16 Pulse 84 Pulse Source Pulse Oximeter Pulse Oximetry (%) 99 Oxygen Delivery Method Room Air Intake Visit Reasons: s/p right L5 TFESI Battery Assembler Dry Cell Required: No Allergies avocado Allergy (Intermediate, Verified 02/26/25 12:25) lip swelling prednisone Adverse Reaction (Severe, Verified 02/26/25 12:25) panic attacks/severe anxiety Medication List - Last Reconciled 02/26/25 by Lolita Azul LPN magnesium oxide 400 mg PO DAILY omeprazole 40 mg PO DAILY@0630 HPI HPI s/p right L5 TFESI: Details: History of Present Illness The patient is a 49-year-old male presenting with chronic low back pain and associated sciatica. He has a longstanding history of back pain following a childhood injury that resulted in fractured vertebrae. The patient underwent spine surgery, and despite interventions such as a right L5 transforaminal epidural steroid injection, his symptoms persist, characterized by radiating pain into the right leg and numbness on the top of his right foot, impacting his daily activities. Muscular stiffness has been described as significant, and sciatica follows specific activities, notably standing for prolonged periods or shifting weight. The patient's musculature is described as tightly spastic, corresponding with a history of degenerative disc disease observed across multiple lumbar vertebrae. Pain Description - Onset and Timing: Chronic since childhood injury; post-surgical exacerbation - Quality and Character: Deep, aching low back pain; sciatica described as radiating, numbing - Primary Location: Lumbar spine with sciatica affecting right leg - Radiation: Right leg, into the foot affecting toes - Exacerbating Factors: Standing for extended periods, shifting weight - Relieving Factors: Walking, swimming - Interferences: Limits standing duration and comfortable sitting time Physical Exam - Musculoskeletal- Right L5-S1 region with signs of reduced flexibility; palpable tightness in lumbar muscular structures Results - Imaging/MRI: Previous scans showed multilevel lumbar degenerative disc disease Pain Management - Affect: The patient reports functional limitations and frustration with limited standing ability - Analgesia: Previous treatments include multiple epidural steroid injections with limited efficacy - Adverse Effects: None reported - Activities of Daily Living: Restricted by inability to stand for long periods and limited to short durations of comfortable sitting - Aberrant Drug-Related Behaviors: None reported or observed [facility] Medical History (Updated 01/28/25 @ 10:24 by Jorge Portillo MD) Sleep disorder Opiate dependence History of cardioversion Afib Arthritis GERD (gastroesophageal reflux disease) Fracture Back pain Lumbar degenerative disc disease Surgical History (Updated 07/07/24 @ 13:34 by ZULEMA Gonzalez) History of esophagogastroduodenoscopy (EGD) H/O colonoscopy Hx of nasal septoplasty Social History Household Members: Spouse Housing: House Are you a primary point of care technician to a significant other at home: No Do you presently have visiting nurse or other home services: No Patient Tobacco Use Status: Former Tobacco user Tobacco use type: Cigarette Years Smoked: 20 Substance Use Type: Marijuana service: No Physical Exam Vital Signs: Last Vital Signs Pulse 84 02/26/25 12:24 Resp 16 02/26/25 12:24 BP 131/75 02/26/25 12:24 Pulse Ox 99 02/26/25 12:24 Oxygen Delivery Method Room Air 02/26/25 12:24 BMI result Body Mass Index 26.9 Assessment & Plan Assessment & Plan (1) Lumbar radicular pain: Code(s): M54.16 - Radiculopathy, lumbar region Category: Medical (2) Lumbago: Code(s): M54.50 - Low back pain, unspecified Category: Medical Plan Plan - Continue non-impact activities for pain management, with emphasis on swimming and walking. - Evaluate the potential for temporary nerve stimulation as a conservative intervention. - Avoid additional surgical interventions or overly invasive procedures due to patient's young age and potential of worsening adjacent segment disease. Patient was informed and verbally consented to the use of an ambient scribe for clinic note documentation during this visit. Discussion Notes I discussed with the patient that chronic low back pain, especially post-surgical pain, is difficult to treat often without long-term solutions through surgery. We reviewed various options, emphasizing the importance of non-invasive management. The potential of temporary nerve stimulation was discussed, highlighting its minimal side effects and temporary relief benefits. I advised against further surgical interventions given the patient's prior surgery, explaining the risks of increasing surgical interventions over time. The patient agreed to maintain non-impact activities and was given the option to consider conservative interventions only when symptoms warrant due to severity. Patient Instructions - Continue daily walking and swimming as tolerated to manage back pain. - Avoid high-impact activities and maintain proper posture. - Consider temporary nerve stimulation if symptoms become unmanageable. - Monitor for any increase in pain or reduction in mobility and return to the clinic as necessary. Coding Level of Care Code Est Pt Level 4 (47002) Diagnoses Lumbar radicular pain M54.16 Lumbago M54.50
[2025-02-26 12:24] VITALS: BP 131/75; PULSE 84; RESP 16; O2SAT 99; BMI 26.9
--- OUTSIDE RECORDS SUMMARY | 2025-02-26 12:51 | XMS_ITS | Clinical Summary ---
Author Organization Randa Staples [facility] Address [address] [place] [address] Care Team Providers Care Viticulturist Name Role Phone System, Provider Not In Primary Care Provider Un available Allergies Active Allergy Reactions Criticality Noted Date Comments No Known Drug Allergies Other (See Comments) Medications omeprazole (PriLOSEC) 20 MG capsule 10/21/2014 Active Active Problems Problem Noted Date Diagnosed Date Lumbosacral spondylosis without myelopathy 08/29 Overview (08/29/2018): Added automatically from request for surgery [id number] Lumbar radiculopathy 07/09/2018 Spondylosis of cervical spine [...] patient's age to complete this topic Insurance [facility] Care Teams Viticulturist Relationship Specialty Start Date End Date System, Provider Not In PCP - General 09/17/18
== END 2025-02-26 12:51 | disposition home or self-care (01) ==
LOC: HO.PMC 12:18
PROVIDERS: PCP Nurse Practitioner Family; Visit Provider Internal Medicine
DX: M54.16 Radiculopathy, lumbar region (principal); M54.50 Low back pain, unspecified
CPT/HCPCS: 99214

== ENCOUNTER → 2025-02-26 12:18 | Outpatient (BNVA) | payer BC, SELFPAY | PROVIDERS: PCP Nurse Practitioner Family; Visit Provider Internal Medicine ==

== ENCOUNTER 2025-04-22 07:45 | Outpatient (REF) | payer BC, SELFPAY ==
--- NOTE | ~2025-04-22 | CT_ITS ---
CLINICAL HISTORY: Z98.1 - Arthrodesis status --- Additional Notes or Special Instructions: evaluate for progression of fusion post-operatively CT lumbar spine without contrast Comparison: MR/WY/SR - MR LUMBAR SPINE WITHOUT IV CONTRAST - 12/17/24 10:43 EDT DX/SR - XR LUMBAR SPINE 4 OR MORE VIEWS - 07/07/24 12:[address]/SR - CT LUMBAR SPINE WITHOUT IV CONTRAST - 06/23/24 12:28 EDT Findings: Status post posterior fusion with intervertebral disc spacers at L3-L4 and L4-L5. When compared to the prior exams, there has been partial osseous fusion of the disc spaces. Alignment is stable when compared to prior with straightening of the spine. Hardware is intact. No acute fracture or dislocation. Visualized lungs are clear. IMPRESSION: Interval partial osseous fusions of the L3-L4 and L4-L5 disc spaces. This document has been electronically signed by: Meryl Baca MD on 04/22/2025 18:39:00
--- OUTSIDE RECORDS SUMMARY | 2025-04-22 07:47 | XMS_ITS | Clinical Summary ---
Author Organization Randa Staples [facility] Address [address] [place] [address] Care Team Providers Care Radiology Transcriptionist Name Role Phone System, Provider Not In Primary Care Provider Un available Allergies Active Allergy Reactions Criticality Noted Date Comments No Known Drug Allergies Other (See Comments) Medications omeprazole (PriLOSEC) 20 MG capsule 10/21/2014 Active Active Problems Problem Noted Date Diagnosed Date Lumbosacral spondylosis without myelopathy 08/29 Overview (08/29/2018): Added automatically from request for surgery [id number] Lumbar radiculopathy 07/09/2018 Spondylosis of cervical spine [...] 72 09/18/2018 10:03 AM EST Temperature 36.8 C (98.2 F) 09/18/2018 9:35 AM EST Respiratory Rate 16 09/18/2018 10:03 AM EST Oxygen Saturation 100% 09/18/2018 10:03 AM EST Inhaled Oxygen Concentration - - Weight 97.5 kg (215 lb) 08/29/2018 10:30 AM EST Height 190.5 cm (6' 3 ) 08/29/2018 10:30 AM EST Body Mass Index 26.87 08/29/2018 10:30 AM EST Plan of Treatment Health Maintenance Due Date Last Done Comments Blood Pressure 1975 Lipid Panel 1975 PSA 1977 Prostate Cancer Screening 1975 SDM 1977 Depression Screening 1981 Hepatitis C Screening 1995 DTaP,Tdap,and Td Vaccines (1 - Tdap) 1996 CT Colonography 2022 Colonoscopy 2022 Colorectal Cancer Screening 2022 FIT 2022 FOBT 2022 Multitarget Stool DNA (Cologuard) 2022 Sigmoidoscopy 2022 COVID-19 Vaccine ( - 2023-2 5 season) 2024 Influenza Vaccine (#1) 2025 Meningococcal B Vaccines Aged Out No longer eligible based on patient's age to complete this topic Meningococcal Vaccines Aged Out No lo nger eligible based on patient's age to complete this topic Pneumococcal Vaccine: Pediat rics (0 to 5 Years) and At-Risk Patients (6 to 64 Years) Aged Out No longer eligible b ased on patient's age to complete this topic Insurance [facility] Care Teams Radiology Transcriptionist Relationship Specialty Start Date End Date System, Provider Not In PCP - General 09/17/18
--- OUTSIDE RECORDS SUMMARY | 2025-04-22 07:47 | XMS_ITS | Clinical Summary ---
Author Organization [facility] Address [address] [place] [address] Care Team Providers Care Pbx Repairer Name Role Phone [place], Jess SANDRA Primary Care Provider [phone] Allergies No known active allergies Medications omeprazole [...] 79 02/15/2023 9:18 AM EDT Temperature 37.1 C (98.7 F) 07/29/2017 10:47 AM EDT Respiratory Rate 16 02/15/2023 9:18 AM EDT [...] COVID-19 Vaccine (1 - 2023-25 season) 2024 Alcohol/Substance Use Screening 09/30/2024 Depression Screening and Follow-Up 09/30/2024 Social Drivers of Health Annual Screening 09/30/2024 Influenza Vaccine (#1) 2025 RSV Vaccine (60+ years old a nd patients) (1 - 1-dose 75+ series) 2052 Insurance MEDICARE [facility] Care Teams Pbx Repairer Relationship Specialty Start Date End Date Jess Abreu NP [address] [place] [address] PCP - General Nurse Practitioner 10/26/22
== END 2025-04-22 07:46 | disposition home or self-care (01) ==
LOC: HO.CT 07:45
PROVIDERS: PCP Nurse Practitioner Family; Visit Provider Physician Assistant
DX: Z98.1 Arthrodesis status (principal)
CPT/HCPCS: 72131

== ENCOUNTER → 2025-04-22 07:47 | Outpatient (BNV) | payer BC, SELFPAY | PROVIDERS: PCP Nurse Practitioner Family; Visit Provider Radiology Diagnostic Radiology | DX: Z98.1 Arthrodesis status (principal) | CPT/HCPCS: 72131 ==